=== PATIENT | female | born 1960 | race Caucasian/White ===

== ENCOUNTER 2020-10-13 02:02 | Emergency (ER) | payer OTHER, SELFPAY ==
--- NOTE | ~2020-10-13 | XR_ITS ---
EXAMINATION: XR CHEST CLINICAL INFORMATION: Stomach pain COMPARISON: 07/17/2020 TECHNIQUE: Frontal view of the chest was obtained. FINDINGS: No significant abnormality is noted involving the heart, lungs, mediastinum, bony thorax or soft tissues. XR/XR chest 1V IMPRESSION: Unremarkable examination.
[2020-10-13 02:09] VITALS: BP 162/63; BP 200/100; PULSE 62; PULSE 68; RESP 15; O2SAT 100; BMI 42.5
[2020-10-13 02:14] VITALS: BP 162/63; PULSE 59
--- NOTE | 2020-10-13 02:14 | ECG_ITS ---
Test Reason : DIZZINESS Blood Pressure : / mmHG Vent. Rate : 064 BPM Atrial Rate : 064 BPM P-R Int : 158 ms QRS Dur : 084 ms QT Int : 428 ms P-R-T Axes : 048 035 157 degrees QTc Int : 441 ms Normal sinus rhythm T wave abnormality, consider inferolateral ischemia Abnormal ECG When compared with ECG of 11-DEC-2018 10:03, No significant change was found Referred By: Daxa Alvarez Electronically Signed By:Michael Pollock
[2020-10-13 02:33] LABS: Basophils Percent Auto 0.5 % (0-2); Eosinophils Absolute Auto 0.2 X10*3/uL (0.0-0.4); Eosinophils Percent Auto 1.9 % (0-4); Hematocrit 40.6 % (37-47); Hemoglobin 13.6 g/dl (12.0-16.0); Imm Gran Abs Auto 0.02 X10*3/uL (0.00-0.03); Imm Gran Pct Auto 0.3 % (0.0-0.4); Lymphocytes Absolute Auto 1.7 X10*3/uL (1.2-4.9); Lymphocytes Percent Auto 21.6 % (20-40); MANUAL DIFF FLAG NO; Mean Corpuscular HGB Conc 33.5 g/dl (31.0-35.0); Mean Corpuscular Hemoglobin 28.8 pg (27.0-33.0); Mean Platelet Volume 10.1 fL (9.4-12.3); Monocytes Absolute Auto 0.5 X10*3/uL (0.1-1.2); Monocytes Percent Auto 6.1 % (2-11); Neutrophils Absolute Auto 5.4 X10*3/uL (2.0-8.3); Neutrophils Percent Auto 69.6 % (45-73); Platelet Count 211 X10*3/uL (160-400); Red Blood Count 4.72 X10*6/uL (4.20-5.50); White Blood Count 7.7 X10*3/uL (4.8-10.8)
[2020-10-13 02:56] LABS: Troponin-I High Sensitivity 3.8 ng/L (<3.5-17.0)
[2020-10-13 03:01] VITALS: BP 168/68; BP 170/74; PULSE 61; PULSE 62
[2020-10-13 03:01] LABS: Alanine Aminotransferase 38 U/L (0-31); Albumin Level 4.3 g/dL (3.5-5.0); Alkaline Phosphatase 65 U/L (39-117); Anion Gap 12 (12-20); Aspartate Amino Transferase 24 U/L (5-31); Bilirubin Total 0.4 mg/dL (0.0-1.0); Blood Urea Nitrogen 24 mg/dL (9-16); Calcium 9.6 mg/dL (8.4-10.2); Carbon Dioxide 30 mmol/L (22-29); Chloride 103 mmol/L (96-108); Estimated Glomerular Filt Rate > 60; Glucose Random 118 mg/dL (60-115); Lipase 34 U/L (8-78); Potassium 3.7 mmol/L (3.3-5.1); Sodium 141 mmol/L (135-145); Total Protein 6.9 g/dL (6.5-8.0)
--- NOTE | 2020-10-13 03:03 | ED_ITS ---
HPI - Dizziness General Chief Complaint: Dizziness Stated Complaint: STOMACH PAIN W/DIZZINESS Time Seen by Provider: 10/13/20 02:13 Source: patient Mode of arrival: ambulatory History of Present Illness HPI Narrative: This is 60-year-old female who presents with onset lightheadedness and vertigo that she states started after getting up when she fell asleep watching television at approximately 12:45 am. She denies any headache, shortness of breath, chest pain/palpitations but states that she did feel nauseous and felt as though her ?stomach was upset?. She denies any speech/visual/motor/sensory dysfunction. Related Data Previous Rx's Medication Instructions Recorded montelukast 10 mg tablet 10 mg PO DAILY #90 tab 12/27/19 cholecalciferol (vitamin D3) 1,250 1,250 mcg PO QWEEK #12 cap 01/06/20 mcg (50,000 unit) capsule amlodipine 5 mg tablet 5 mg PO DAILY #90 tab 01/12/20 losartan 50 mg-hydrochlorothiazide 1 tab PO DAILY #90 tab 05/19/20 12.5 mg tablet famotidine 40 mg tablet 40 mg PO BEDTIME #90 tab 05/28/20 Allergies Allergy/AdvReac Type Severity Reaction Status Date / Time Sulfa (Sulfonamide Allergy Intermediate WELTS , Verified 10/13/20 05:15 Antibiotics) RASH, RASH [SULFA (SULFONAMIDE ANTIBIOTICS)] egg [EGG] Allergy Mild RASH Verified 10/13/20 05:15 escitalopram Allergy Unknown GI upset, Verified 10/13/20 05:15 burning lisinopril Allergy Unknown cough Verified 10/13/20 05:15 sertraline Allergy Unknown stomach Verified 10/13/20 05:15 upset SHELLFISH Allergy Severe ANAPHYLAXIS Uncoded 10/13/20 05:15 shellfish Allergy Unknown SOB Uncoded 10/13/20 05:15 Review of Systems Review of Systems: Pertinent positives and negatives as stated in HPI 10 point review of systems is otherwise negative. PMFSH Past Medical History Source: nursing notes reviewed Medical History Chronic back pain Depression Hypertension Social History Social History Alcohol intake: never Patient Tobacco Use Status: Never used Tobacco Use of substances other than those prescribed or required for medical reasons: No Advance Directives: No Patient : No Physical Exam Vital Signs: Vital Signs: Last Vital Signs Pulse 62 10/13/20 04:29 Resp 17 10/13/20 04:29 BP 126/54 L 10/13/20 04:29 Pulse Ox 100 10/13/20 02:09 Body Mass Index 42.5 VITAL SIGNS: Reviewed. GENERAL: Well developed, well nourished, in no acute distress. HEAD: Normocephalic/atraumatic EYES: PERRLA, EOMI intact without pain, no nystagmus EARS: Ext canals without abnormality, TMs non-bulging and non-erythematous NOSE: Nares patent bilateral OROPHARYNX: no oral lesions noted, posterior pharynx clear, dry mucosa NECK: Supple, no adenopathy LUNGS: Normal breath sounds. No adventitious sounds or accessory muscle use. SpO2<100> CARDIOVASCULAR: Regular rate and rhythm without noted murmurs ABDOMEN: Soft, non-tender, non-distended with bowel sounds. SKIN: Inspection of the skin reveals no rashes NEUROLOGIC: Alert and oriented x 4. Strength and sensation to light touch were grossly intact x 4, no facial asymmetry, no pronator drift, cranial nerves 2-12 are grossly intact, cerebellar testing without deficit Course Course Course Narrative: 60-year-old female with history and clinical presentation with low clinical suspicion for neurologic dysfunction and orthostatics are within normal limits although patient appears clinically dry. Will evaluate for evidence infection, anemia, arrhythmia. Of all investigations there are no acute findings to suggest infection, anemia, or arrhythmia. Serial troponins although detectable but not elevated there were no acute changes on review of EKG. Patient was informed of all investigations and on re-evaluation after receiving IV fluid resuscitation she is stable and without symptoms to go home and follow-up with her primary care provider. MDM - Dizziness Lab Data Result diagrams: 10/13/20 02:26 10/13/20 02:26 Labs: Lab Results 10/13/20 10/13/20 10/13/20 Range/Units 02:26 02:26 02:26 WBC 7.7 (4.8-10.8) X10*3/uL RBC 4.72 (4.20-5.50) X10*6/uL Hgb 13.6 (12.0-16.0) g/dl Hct 40.6 (37-47) % MCV 86.0 (80-98) fL MCH 28.8 (27.0-33.0) pg MCHC 33.5 (31.0-35.0) g/dl RDW 13.0 (11.0-16.0) % Plt Count 211 (160-400) X10*3/uL MPV 10.1 (9.4-12.3) fL Immature Gran % (Auto) 0.3 (0.0-0.4) % Neut % (Auto) 69.6 (45-73) % Lymph % (Auto) 21.6 (20-40) % [place] % (Auto) 6.1 (2-11) % Eos % (Auto) 1.9 (0-4) % Baso % (Auto) 0.5 (0-2) % Lymph # (Auto) 1.7 (1.2-4.9) X10*3/uL [place] # (Auto) 0.5 (0.1-1.2) X10*3/uL Eos # (Auto) 0.2 (0.0-0.4) X10*3/uL Baso # (Auto) 0.0 (0.0-0.2) X10*3/uL Abs Immat Gran (auto) 0.02 (0.00-0.03) X10*3/uL Absolute Neuts (auto) 5.4 (2.0-8.3) X10*3/uL Absolute Nucleated RBC 0.000 (0.0-0.012) X10*3/uL Nucleated RBC % (auto) 0.0 (0.0-0.2) /100WBC Sodium 141 (135-145) mmol/L Potassium 3.7 (3.3-5.1) mmol/L Chloride 103 (96-108) mmol/L Carbon Dioxide 30 H (22-29) mmol/L Anion Gap 12 (12-20) BUN 24 H (9-16) mg/dL Creatinine 0.83 (0.5-1.4) mg/dL Estim Creat Clear Calc 78.0 Estimated GFR > 60 Random Glucose 118 H (60-115) mg/dL Calcium 9.6 (8.4-10.2) mg/dL Total Bilirubin 0.4 (0.0-1.0) mg/dL AST 24 (5-31) U/L ALT 38 H (0-31) U/L Alkaline Phosphatase 65 (39-117) U/L Troponin I High Sens 3.8 (<3.5-17.0) ng/L Total Protein 6.9 (6.5-8.0) g/dL Albumin 4.3 (3.5-5.0) g/dL Lipase 34 (8-78) U/L Urine Color Urine Appearance Urine pH (5.0-8.0) Ur Specific [place] (1.005-1.025) Urine Protein (NEG-TRACE) MG/DL Urine Glucose (UA) (NEG) MG/DL Urine Ketones (NEG) MG/DL Urine Blood (NEG) Urine Nitrite (NEG) Ur Leukocyte Esterase (NEG) COVID-19 (ANIKET) (Negative) COVID-19 Clin Com 10/13/20 10/13/20 10/13/20 Range/Units 04:00 04:31 04:31 WBC (4.8-10.8) X10*3/uL RBC (4.20-5.50) X10*6/uL Hgb (12.0-16.0) g/dl Hct (37-47) % MCV (80-98) fL MCH (27.0-33.0) pg MCHC (31.0-35.0) g/dl RDW (11.0-16.0) % Plt Count (160-400) X10*3/uL MPV (9.4-12.3) fL Immature Gran % (Auto) (0.0-0.4) % Neut % (Auto) (45-73) % Lymph % (Auto) (20-40) % [place] % (Auto) (2-11) % Eos % (Auto) (0-4) % Baso % (Auto) (0-2) % Lymph # (Auto) (1.2-4.9) X10*3/uL [place] # (Auto) (0.1-1.2) X10*3/uL Eos # (Auto) (0.0-0.4) X10*3/uL Baso # (Auto) (0.0-0.2) X10*3/uL Abs Immat Gran (auto) (0.00-0.03) X10*3/uL Absolute Neuts (auto) (2.0-8.3) X10*3/uL Absolute Nucleated RBC (0.0-0.012) X10*3/uL Nucleated RBC % (auto) (0.0-0.2) /100WBC Sodium (135-145) mmol/L Potassium (3.3-5.1) mmol/L Chloride (96-108) mmol/L Carbon Dioxide (22-29) mmol/L Anion Gap (12-20) BUN (9-16) mg/dL Creatinine (0.5-1.4) mg/dL Estim Creat Clear Calc Estimated GFR Random Glucose (60-115) mg/dL Calcium (8.4-10.2) mg/dL Total Bilirubin (0.0-1.0) mg/dL AST (5-31) U/L ALT (0-31) U/L Alkaline Phosphatase (39-117) U/L Troponin I High Sens 4.0 (<3.5-17.0) ng/L Total Protein (6.5-8.0) g/dL Albumin (3.5-5.0) g/dL Lipase (8-78) U/L Urine Color YELLOW Urine Appearance CLEAR Urine pH 6.0 (5.0-8.0) Ur Specific [place] 1.010 (1.005-1.025) Urine Protein NEG (NEG-TRACE) MG/DL Urine Glucose (UA) NEG (NEG) MG/DL Urine Ketones NEG (NEG) MG/DL Urine Blood NEG (NEG) Urine Nitrite NEG (NEG) Ur Leukocyte Esterase NEG (NEG) COVID-19 (ANIKET) Negative (Negative) COVID-19 Clin Com See Note ECG Data Attestation: I personally reviewed and interpreted this ECG as follows: Prior ECG tracings: available for review (12/11/2018 no acute changes on comparison) Interpretation: Normal sinus rhythm, HR-64, no STEMI, VA/QRS/QTC are within normal limits. Discharge Plan Discharge Clinical Impression: Dizziness, Dehydration Patient Disposition: Home, Self-Care Instructions: Dehydration (ED), Dizziness (ED) Additional Instructions: 1. Resume all home medications as prescribed. 2. Follow-up with your primary care provider in 1-2 days for re-evaluation and further outpatient management. Return to the ER for acute worsening of your symptoms. Prescriptions: No Action montelukast 10 mg tablet 10 mg PO DAILY Qty: 90 RF: 3 cholecalciferol (vitamin D3) 1,250 mcg (50,000 unit) capsule 1,250 mcg PO QWEEK Qty: 12 RF: 0 amlodipine 5 mg tablet 5 mg PO DAILY Qty: 90 RF: 4 losartan-hydrochlorothiazide 50-12.5 mg tablet 1 tab PO DAILY Qty: 90 RF: 1 famotidine 40 mg tablet 40 mg PO BEDTIME Qty: 90 RF: 3 Referrals: Kianna Munguia MD [Primary Care Provider] - 2 days
[2020-10-13] MEDS: 0.9 % Sodium Chloride 1,000 ML 999 ML IV (04:04)
[2020-10-13 04:09] LABS: Glucose Urine UA NEG (NEG); Leukocyte Esterase Urine NEG (NEG); Nitrite Urine NEG (NEG); Urine Blood NEG (NEG); Urine Ketones NEG (NEG); Urine Protein NEG (NEG-TRACE)
[2020-10-13 04:10] LABS: Appearance Urine CLEAR; Color Urine YELLOW; UACC Culture Trigger NO
[2020-10-13 04:29] VITALS: BP 126/54; PULSE 62; RESP 17
[2020-10-13 04:54] LABS: COVID-19 Test Negative (Negative); IDNOW Serial# 9DD0AD1C
== END 2020-10-13 06:15 | disposition home or self-care (01) ==
PROVIDERS: Emergency Provider Student in an Organized Health Care Education/Training Program; PCP Internal Medicine
DX: R42 Dizziness and giddiness (principal); E86.0 Dehydration; Z79.899 Other long term (current) drug therapy; Z20.822 Contact with and (suspected) exposure to COVID-19
CPT/HCPCS: 36415; 71045; 80053; 81003; 83690; 84484; 85025; 87635; 93005; 99284; 99285

== ENCOUNTER 2021-02-27 08:10 | Outpatient (REF) | payer OTHER, SELFPAY ==
[2021-02-27 11:27] LABS: Alanine Aminotransferase 30 U/L (0-31); Anion Gap 12 (12-20); Aspartate Amino Transferase 24 U/L (5-31); Blood Urea Nitrogen 20 mg/dL (9-16); Calcium 10.2 mg/dL (8.4-10.2); Carbon Dioxide 30 mmol/L (22-29); Chloride 104 mmol/L (96-108); Cholesterol 203 mg/dL; Estimated Glomerular Filt Rate > 60; Glucose Fasting 91 mg/dL (60-99); HDL Cholesterol 36 mg/dL; LDL Cholesterol Calculated 146 mg/dl; Potassium 4.2 mmol/L (3.3-5.1); Sodium 142 mmol/L (135-145); Triglycerides 105 mg/dL
[2021-02-27 11:44] LABS: Vitamin D 25-OH Total 35.2 ng/mL (>30)
== END 2021-02-27 08:11 | disposition home or self-care (01) ==
LOC: HO.HMGCLDS 08:10
PROVIDERS: Visit Provider Internal Medicine
DX: I10 Essential (primary) hypertension (principal)
CPT/HCPCS: 36415; 80048; 80061; 82306; 84450; 84460

== ENCOUNTER 2021-04-19 17:30 | Outpatient (RCR) | payer OTHER, SELFPAY ==
[2021-04-16 13:02] VITALS: BP 130/78
--- NOTE | 2021-04-16 14:00 | MHC.PT.EP ---
[facility] [place] Office [place] Office [place] Office [address] [place] [address] Dr Meena Mueller [address] [phone] F: [phone] F: [phone] F: [phone] F: [phone] Physical Therapy Plan of Care Date of Evaluation: Date of Surgery: Diagnosis: dizziness and giddiness Assessment: 61 y/o F referred to PT with dizziness and giddiness. Describes dizziness as room-spinning that lasts seconds and occurs with rolling in bed (especially to the R), looking up, or turning quickly. She has had these sx for several years of insidious onset. Examination shows normal saccades, normal smooth pursuits, (-) VBI test B, mild sway with static stance in eyes closed positions and on foam, DGI not tested secondary to time constraints, and (+) R and L posterior canal BPPV. Performed Beny x2 for R and L posterior canal with no nystagmus on second roll, but treated as a precaution. Recommend PT 2x/week for 4 weeks to address impairments, implement HEP, and optimize functional mobility. Will re-assess balance once BPPV has resolved. Frequency and Duration: The patient will be seen 2x/week for 4 weeks Short Term Goals: Assess DGI and re-asess static balance Residential Goals: 4 weeks: -Pt will be (-) for nystagmus of reports of vertigo in all diagnostic directions B to resolutions of BPPV in 4 weeks -Tolerate position changes without complaints vertigo to improve safety and return to pre-onset level -Pt to be able to functionally move in all planes without provocation of dizziness and return to PLOF in 4 weeks -Pt to be educated on sx and indications to return to therapy when needed in 4 weeks Treatment Plan: Modalities to reduce pain, spasms and effusion. Manual therapy to restore motion and function. Therapeutic exercise to improve strength and flexibility. Neuromuscular re-education for posture and balance. Therapeutic activities to return to functional activities of daily living. Electronically signed by: Rachel Roman PT Please sign and return to therapist. Thank you for your referral.
--- NOTE | 2021-05-19 10:09 | MHC.PT.DC ---
[facility] [place] Office [place] Office [place] Office [address] Meena Mueller [address] [phone] F: [phone] F: [phone] F: [phone] F: [phone] Physical Therapy Discharge Report Diagnosis: dizziness and giddiness Date of Surgery: Date of Evaluation: 04/16/21 Date of Discharge: 05/19/21 Treatments to Date: 2 Cancellations to Date: 0 No Shows to Date: 0 Discharge Status: Achieved Goals Improved Function Independent with HEP Discharge Summary: Kailyn came in feeling good at the last tx session. She had symptoms following the eval but this cleared up the following 3 days. She has not had any symptoms since the eval. She is able to roll in bed without dizziness and able to look up without symptoms. She was negative for nystagmus and symptoms in all testing positions. She had a questionable beat in roll test but no symptoms and I question if this was regular eye tracking/focusing. She was educated to call and cancel her Monday appointment if symptoms continue to stay resolved. Educated her that chart will be kept open for 30 days if symptoms do not return. DC'd at this time 61 y/o F referred to PT with dizziness and giddiness. Describes dizziness as room-spinning that lasts seconds and occurs with rolling in bed (especially to the R), looking up, or turning quickly. She has had these sx for several years of insidious onset. Examination shows normal saccades, normal smooth pursuits, (-) VBI test B, mild sway with static stance in eyes closed positions and on foam, DGI not tested secondary to time constraints, and (+) R and L posterior canal BPPV. Performed Beny x2 for R and L posterior canal with no nystagmus on second roll, but treated as a precaution. Recommend PT 2x/week for 4 weeks to address impairments, implement HEP, and optimize functional mobility. Will re-assess balance once BPPV has resolved. Electronically signed by: Jocelyn Malin, PT Please sign and return to therapist. Thank you for your referral.
== END 2021-05-19 10:09 | disposition home or self-care (01) ==
LOC: HO.PTCHIC 17:30
PROVIDERS: PCP Internal Medicine; Visit Provider Internal Medicine
DX: R42 Dizziness and giddiness (principal)
CPT/HCPCS: 95992; 97161

== ENCOUNTER 2021-06-18 06:23 | Emergency (ER) | payer OTHER, SELFPAY ==
[2021-06-18 06:31] VITALS: BP 160/77; PULSE 75; RESP 18; TEMP 36.2; O2SAT 99; BMI 40.2
--- NOTE | 2021-06-18 06:54 | ED_ITS ---
HPI - General Adult General Chief complaint: Abdominal Pain Stated complaint: kidney pain, right leg pain Time Seen by Provider: 06/18/21 06:44 Source: patient Mode of arrival: ambulatory Limitations: no limitations History of Present Illness HPI narrative: Patient comes to the emergency room complaining of right-sided flank pain and right upper thigh tingling. Patient states that she was seen on Monday, she was told that she had a UTI, but was not placed on antibiotics. Patient denies dysuria or hematuria, no fever or chills, no flank pain At the same visit, patient complain of right-sided lateral leg tingling and burning sensation. Patient was given meloxicam and cyclobenzaprine. Patient denies shooting pain running down her leg, no pain below the affected area, no calf pain, no numbness or tingling. The burning sensation is worse with standing up. The middle and inner aspect of the thigh are not affected, rest of the leg does not hurt, no numbness or tingling. Patient has no loss of streng th. Patient denies urinary/fecal incontinence or retention. Related Data Home Medications Medication Instructions Recorded Confirmed omeprazole magnesium 20 mg 20 mg PO DAILY 02/26/21 06/15/21 tablet,delayed release (Prilosec OTC) Previous Rx's Medication Instructions Recorded montelukast 10 mg tablet 10 mg PO DAILY #90 tab 12/27/19 amlodipine 5 mg tablet 5 mg PO DAILY #90 tab 01/12/20 losartan 50 mg-hydrochlorothiazide 1 tab PO DAILY #90 tab 01/01/21 12.5 mg tablet meclizine 25 mg tablet 25 mg PO DAILY PRN #20 tab 02/26/21 cyclobenzaprine 10 mg tablet 10 mg PO BEDTIME #14 tab 06/15/21 meloxicam 15 mg tablet 15 mg PO DAILY #14 tab 06/15/21 Allergies Allergy/AdvReac Type Severity Reaction Status Date / Time Sulfa (Sulfonamide Allergy Intermediate WELTS , Verified 06/15/21 10:19 Antibiotics) RASH, RASH [SULFA (SULFONAMIDE ANTIBIOTICS)] egg [EGG] Allergy Mild RASH Verified 06/15/21 10:19 escitalopram Allergy Unknown GI upset, Verified 06/15/21 10:19 burning lisinopril Allergy Unknown cough Verified 06/15/21 10:19 sertraline Allergy Unknown stomach Verified 06/15/21 10:19 upset SHELLFISH Allergy Severe ANAPHYLAXIS Uncoded 06/15/21 10:19 shellfish Allergy Unknown SOB Uncoded 06/15/21 10:19 Review of Systems Review of Systems: Constitutional : No Weight loss, No Fever, No Chills, No Night Sweats, No Fatigue, No Malaise ENT/Mouth : No Hearing loss, No Ear Pain, No Nasal Congestion, No Sinus Pain, No Hoarseness, No sore throat, No Rhinorrhea, No Swallowing Difficulty Eyes: No Eye Pain, No Swelling, No Redness, No Foreign Body, No Discharge, No Vision Changes Cardiovascular : No Chest Pain, No SOB, No Dyspnea on Exertion, No Orthopnea, No Edema, No Palpitations Respiratory : No Cough, No Sputum, No Wheezing, No Smoke Exposure, No Dyspnea Gastrointestinal : No Nausea, No Vomiting, No Diarrhea, No Constipation, mild lower abdominal discomfort, No Hematochezia, No Melena Genitourinary : no irregular bleeding, No Dysuria, No Urinary Frequency, No Hematuria, No Urinary Incontinence, No Urgency, No Flank Pain, No Urinary Flow Changes, No Hesitancy Musculoskeletal : Complaining of tingling and burning sensation in the lateral aspect of the right thigh, No Joint Swelling Skin : No Skin Lesions, No rash Neuro : No Weakness, No Numbness, No Paresthesias, No Loss of Consciousness, No Dizziness, No Headache Psych : No Anxiety/Panic, No Depression, No SI/HI/AH/VH, No Social Issues, Heme/Lymph: No Bruising, No Bleeding,No Lymphadenopathy Endocrine : No Polyuria, No Polydipsia, No Temperature Intolerance [facility] Past Medical History Medical History Cervical cancer screening Chronic back pain DDD (degenerative disc disease), lumbosacral Depression Essential hypertension Hypertension Positional lightheadedness Family History Family History Son Mental health disorder Social History Social History Housing: House Alcohol intake: never Patient Tobacco Use Status: Never used Tobacco e-Cigarette/Vaping Use: Never Used Advance Directives: No Advance Directives Information Provided: Yes service: No Current occupational status: retired Physical Exam ED Vital Signs: Vital Signs - 24 hr 06/18/21 06:31 Temperature 97.2 F Pulse Rate 75 Respiratory Rate 18 Blood Pressure 160/77 H Pulse Oximetry 99 BMI result Body Mass Index 40.2 Const Other: Appearance: Alert. Oriented X3. No acute distress. Well appearing, anxious Eyes: Pupils equal, round and reactive to light. ENT: Pharynx normal. Neck: Normal inspection. Neck supple. No lymph nodes noted. No crepitus CVS: Normal heart rate and rhythm. Pulses normal. Normal S1 and S2 Respiratory: No respiratory distress. Breath sounds normal. No Wheezing. No rales Abdomen: Soft and nontender. No rigidity. No distention. Back: No CVA tenderness Skin: Skin warm and dry. Normal skin color. Normal skin turgor. Extremities: No lower extremity edema. No Lacerations. No Rash, normal motor function, normal strength bilaterally, pain in right thigh was aggravated by standing up. No pain in the actual hip joint with flexion and extension or rotation Neuro: Oriented X 3. No motor deficit. No sensory deficit. Moving all extrem ities. No slurred speech. CN 2 through 12 grossly intact Psych: calm, cooperative, anxious Course Course Course Narrative: Patient states she was slow she tested positive for UTI, no antibiotics were started. Urinalysis and labs pending. I discussed with the patient that the sensation of tingling and burning pain in the lateral aspect of her thighs likely meralgia paresthetica, femoral cutaneous nerve being affected. Patient is already on naproxen and cyclobenzaprine. I discussed with the patient that if the sensation persists, she may need electromyography or a nerve conduction study Patient's white blood cell count within normal limits, no fever, no chills, normal vitals. Urinalysis negative for UTI, negative for blood, ureterolithiasis not suspected. Patient's source of pain is likely musculoskeletal. Patient was given 1 dose of IM Decadron. Patient has been taking naproxen, no Toradol given. Patient is driving, therefore no narcotics will be given in the ED, patient agrees with plan. I discussed the labs with the patient. Medical Decision Making Lab Data Result diagrams: 06/18/21 07:49 06/18/21 07:49 Labs: Lab Results 06/18/21 06/18/21 06/18/21 Range/Units 07:49 07:49 08:03 WBC 6.4 (4.8-10.8) X10*3/uL RBC 4.57 (4.20-5.50) X10*6/uL Hgb 13.0 (12.0-16.0) g/dl Hct 39.7 (37.0-47.0) % MCV 86.9 (80.0-98.0) fL MCH 28.4 (27.0-33.0) pg MCHC 32.7 (31.0-35.0) g/dl RDW 13.2 (11.0-16.0) % Plt Count 212 (160-400) X10*3/uL MPV 10.2 (9.4-12.3) fL Immature Gran % (Auto) 0.3 (0.0-0.4) % Neut % (Auto) 59.5 (45-73) % Lymph % (Auto) 28.9 (20-40) % [place] % (Auto) 8.0 (2-11) % Eos % (Auto) 2.7 (0-4) % Baso % (Auto) 0.6 (0-2) % Lymph # (Auto) 1.9 (1.2-4.9) X10*3/uL [place] # (Auto) 0.5 (0.1-1.2) X10*3/uL Eos # (Auto) 0.2 (0.0-0.4) X10*3/uL Baso # (Auto) 0.0 (0.0-0.2) X10*3/uL Abs Immat Gran (auto) 0.02 (0.00-0.03) X10*3/uL Absolute Neuts (auto) 3.8 (2.0-8.3) x10*3/uL Absolute Nucleated RBC 0.000 (0.0-0.012) X10*3/uL Nucleated RBC % (auto) 0.0 (0.0-0.2) /100WBC Sodium 139 (135-145) mmol/L Potassium 4.2 (3.3-5.1) mmol/L Chloride 103 (96-108) mmol/L Carbon Dioxide 29 (22-29) mmol/L Anion Gap 11 L (12-20) BUN 16 (9-16) mg/dL Creatinine 0.72 (0.5-1.4) mg/dL Estim Creat Clear Calc 89.4 Estimated GFR > 60 Random Glucose 109 (60-115) mg/dL Calcium 9.4 D (8.4-10.2) mg/dL Total Bilirubin 0.3 (0.0-1.0) mg/dL Direct Bilirubin < 0.2 (0.0-0.5) mg/dL AST 26 (5-31) U/L ALT 44 H (0-31) U/L Alkaline Phosphatase 58 (39-117) U/L Total Protein 6.7 (6.5-8.0) g/dL Albumin 4.1 (3.5-5.0) g/dL Urine Color YELLOW Urine Appearance HAZY Urine pH 6.0 (5.0-8.0) Ur Specific [place] 1.015 (1.005-1.025) Urine Protein NEG (NEG-TRACE) MG/DL Urine Glucose (UA) NEG (NEG) MG/DL Urine Ketones NEG (NEG) MG/DL Urine Blood NEG (NEG) Urine Nitrite NEG (NEG) Ur Leukocyte Esterase NEG (NEG) Discharge Plan Discharge Clinical Impression: Meralgia paresthetica of right side Patient Disposition: Home, Self-Care Instructions: Meralgia Paresthetica (ED) Additional Instructions: Please follow-up with your primary care physician tomorrow. If you have any worsening or new symptoms, please return to the emergency room or call 911 Prescriptions: No Action montelukast 10 mg tablet 10 mg PO DAILY Qty: 90 3RF amlodipine 5 mg tablet 5 mg PO DAILY Qty: 90 4RF losartan-hydrochlorothiazide 50-12.5 mg tablet 1 tab PO DAILY Qty: 90 1RF omeprazole magnesium [Prilosec OTC] 20 mg tablet,delayed release (DR/EC) 20 mg PO DAILY 0RF meclizine 25 mg tablet 25 mg PO DAILY PRN (Reason: motion sickness) Qty: 20 0RF meloxicam 15 mg tablet 15 mg PO DAILY Qty: 14 0RF cyclobenzaprine 10 mg tablet 10 mg PO BEDTIME Qty: 14 0RF
[2021-06-18 07:54] LABS: MANUAL DIFF FLAG NO
[2021-06-18 07:58] LABS: Basophils Percent Auto 0.6 % (0-2); Eosinophils Absolute Auto 0.2 X10*3/uL (0.0-0.4); Eosinophils Percent Auto 2.7 % (0-4); Hematocrit 39.7 % (37.0-47.0); Imm Gran Abs Auto 0.02 X10*3/uL (0.00-0.03); Imm Gran Pct Auto 0.3 % (0.0-0.4); Lymphocytes Absolute Auto 1.9 X10*3/uL (1.2-4.9); Lymphocytes Percent Auto 28.9 % (20-40); Mean Corpuscular HGB Conc 32.7 g/dl (31.0-35.0); Mean Corpuscular Hemoglobin 28.4 pg (27.0-33.0); Mean Corpuscular Volume 86.9 fL (80.0-98.0); Mean Platelet Volume 10.2 fL (9.4-12.3); Monocytes Absolute Auto 0.5 X10*3/uL (0.1-1.2); Neutrophils Absolute Auto 3.8 x10*3/uL (2.0-8.3); Neutrophils Percent Auto 59.5 % (45-73); Platelet Count 212 X10*3/uL (160-400); Red Blood Count 4.57 X10*6/uL (4.20-5.50); Red Cell Distribution Width 13.2 % (11.0-16.0); White Blood Count 6.4 X10*3/uL (4.8-10.8)
[2021-06-18] MEDS: traMADoL HCL 50 MG TABLET PO (07:59)
[2021-06-18 08:07] LABS: Appearance Urine HAZY; Color Urine YELLOW; Glucose Urine UA NEG (NEG); Leukocyte Esterase Urine NEG (NEG); Nitrite Urine NEG (NEG); Specific Gravity - Urine 1.015 (1.005-1.025); Urine Blood NEG (NEG); Urine Ketones NEG (NEG); Urine Protein NEG (NEG-TRACE)
[2021-06-18 08:15] LABS: Alanine Aminotransferase 44 U/L (0-31); Albumin Level 4.1 g/dL (3.5-5.0); Alkaline Phosphatase 58 U/L (39-117); Anion Gap 11 (12-20); Aspartate Amino Transferase 26 U/L (5-31); Bilirubin Direct < 0.2 mg/dL (0.0-0.5); Bilirubin Total 0.3 mg/dL (0.0-1.0); Blood Urea Nitrogen 16 mg/dL (9-16); Calcium 9.4 mg/dL (8.4-10.2); Carbon Dioxide 29 mmol/L (22-29); Chloride 103 mmol/L (96-108); Creatinine Clr Calc Pharmacy 89.4; Estimated Glomerular Filt Rate > 60; Glucose Random 109 mg/dL (60-115); Potassium 4.2 mmol/L (3.3-5.1); Sodium 139 mmol/L (135-145); Total Protein 6.7 g/dL (6.5-8.0)
[2021-06-18] MEDS: dexAMETHasone sod phosphate 4 MG/ML VIAL 6 MG IM (08:43)
== END 2021-06-18 08:49 | disposition home or self-care (01) ==
PROVIDERS: Emergency Provider Emergency Medicine; PCP Internal Medicine
DX: G57.11 Meralgia paresthetica, right lower limb (principal); R10.9 Unspecified abdominal pain; M79.651 Pain in right thigh; Z79.899 Other long term (current) drug therapy
CPT/HCPCS: 36415; 80048; 80076; 81003; 85025; 96372; 99283; 99284; J1100

== ENCOUNTER 2022-03-04 08:24 | Outpatient (REF) | payer OTHER, SELFPAY ==
[2022-03-09 19:18] LABS: HPV mRNA E6/E7 rflx Not Detected (Not Detected)
== END 2022-03-04 08:25 | disposition home or self-care (01) ==
LOC: HO.LAB 08:24
PROVIDERS: Visit Provider Internal Medicine
DX: Z12.4 Encounter for screening for malignant neoplasm of cervix (principal); Z11.51 Encounter for screening for human papillomavirus (HPV)
CPT/HCPCS: 87624; 88142

== ENCOUNTER 2022-03-11 08:42 | Outpatient (REF) | payer OTHER, SELFPAY ==
[2022-03-11 11:53] LABS: Alanine Aminotransferase 27 U/L (0-31); Anion Gap 12 (12-20); Aspartate Amino Transferase 23 U/L (5-31); Blood Urea Nitrogen 20 mg/dL (9-16); Calcium 9.8 mg/dL (8.4-10.2); Carbon Dioxide 31 mmol/L (22-29); Chloride 105 mmol/L (96-108); Cholesterol 216 mg/dL; Estimated Glomerular Filt Rate > 60; Glucose Fasting 99 mg/dL (60-99); HDL Cholesterol 36 mg/dL; LDL Cholesterol Calculated 153 mg/dl; Potassium 4.5 mmol/L (3.3-5.1); Sodium 143 mmol/L (135-145); Triglycerides 139 mg/dL
[2022-03-11 14:02] LABS: Vitamin D 25-OH Total 40.8 ng/mL (>30)
== END 2022-03-11 08:43 | disposition home or self-care (01) ==
LOC: HO.HMGCLDS 08:42
PROVIDERS: PCP Internal Medicine; Visit Provider Internal Medicine
DX: Z00.01 Encounter for general adult medical examination with abnormal findings (principal); N95.9 Unspecified menopausal and perimenopausal disorder; I10 Essential (primary) hypertension
CPT/HCPCS: 36415; 80048; 80061; 82306; 84450; 84460

== ENCOUNTER 2022-03-18 06:18 | Day surgery (SDC) | payer OTHER, SELFPAY ==
--- NOTE | 2022-03-17 12:55 | HO.ANESPROP2 ---
Documented by User: Sangita Posadas NP 03/17/22 12:56 HPI - Anesthesia Eval Consult details Narrative: 62yo F for Upper Endoscopy with Balloon Dilitation and colonoscopy PMFSH Active Problems Active Problems: All Active Problems (Updated 03/17/22 @ 12:34 by Tanisha Tovar RN) Cervical cancer screening (Acute) Low back pain (Acute) Mixed anxiety depressive disorder (Acute) Pruritic intertrigo (Acute) Positional lightheadedness (Acute) Essential hypertension (Acute) Chronic back pain (Acute) DDD (degenerative disc disease), lumbosacral (Acute) Past Medical History Medical History Asthma Chronic back pain DDD (degenerative disc disease), lumbosacral Essential hypertension Fibromyalgia Gastritis GERD (gastroesophageal reflux disease) Hypertension Mixed anxiety depressive disorder Positional lightheadedness Pruritic intertrigo Sleep apnea Family History Family History Son Mental health disorder Surgical History Surgical History H/O sinus surgery Hx of section Hx of cholecystectomy Hx of colonoscopy Social History Social History Housing: House Alcohol intake: never Patient Tobacco Use Status: Never used Tobacco e-Cigarette/Vaping Use: Never Used Use of substances other than those prescribed or required for medical reasons: No Are you DNR?: No Advance Directives: No Advance Directives Information Provided: Yes How much weight loss: 14-23 pounds service: No Current occupational status: retired Cognitive needs: No Hearing needs: No Vision needs: Yes Meds Allergies Allergy/AdvReac Type Severity Reaction Status Date / Time Sulfa (Sulfonamide Allergy Intermediate WELTS , Verified 03/04/22 08:18 Antibiotics) RASH, RASH [SULFA (SULFONAMIDE ANTIBIOTICS)] egg [EGG] Allergy Mild RASH Verified 03/04/22 08:18 escitalopram Allergy Unknown GI upset, Verified 03/04/22 08:18 burning lisinopril Allergy Unknown cough Verified 03/04/22 08:18 sertraline Allergy Unknown stomach Verified 03/04/22 08:18 upset SHELLFISH Allergy Severe ANAPHYLAXIS Uncoded 03/04/22 08:18 shellfish Allergy Unknown SOB Uncoded 03/04/22 08:18 Home Medications Medication Instructions Recorded Confirmed Last Taken Type omeprazole magnesium 20 mg 20 mg PO DAILY 02/26/21 03/18/22 Unknown History tablet,delayed release (Prilosec OTC) Exam Exam Date and Time: March 17, 2022 1255 Pertinent Lab Results Pertinent Lab Results: Laboratory Tests 06/18/21 03/11/22 07:49 08:50 WBC 6.4 Hgb 13.0 Hct 39.7 Plt Count 212 Sodium 143 Potassium 4.5 Chloride 105 Carbon Dioxide 31 H BUN 20 H Creatinine 0.93 Assessment and Plan Assessment Anesthesia Assessment: Chart Reviewed Documented by User: Carol Daniel MD 03/18/22 07:23 PMFSH Past Medical History Medical History Asthma Chronic back pain DDD (degenerative disc disease), lumbosacral Essential hypertension Fibromyalgia Gastritis GERD (gastroesophageal reflux disease) Hypertension Mixed anxiety depressive disorder Positional lightheadedness Pruritic intertrigo Sleep apnea Family History Family History Son Mental health disorder Surgical History Surgical History H/O sinus surgery Hx of section Hx of cholecystectomy Hx of colonoscopy Social History Social History Housing: House Alcohol intake: never Patient Tobacco Use Status: Never used Tobacco e-Cigarette/Vaping Use: Never Used Use of substances other than those prescribed or required for medical reasons: No Are you DNR?: No Advance Directives: No Advance Directives Information Provided: Yes How much weight loss: 14-23 pounds service: No Current occupational status: retired Cognitive needs: No Hearing needs: No Vision needs: Yes Meds Allergies Allergy/AdvReac Type Severity Reaction Status Date / Time Sulfa (Sulfonamide Allergy Intermediate WELTS , Verified 03/04/22 08:18 Antibiotics) RASH, RASH [SULFA (SULFONAMIDE ANTIBIOTICS)] egg [EGG] Allergy Mild RASH Verified 03/04/22 08:18 escitalopram Allergy Unknown GI upset, Verified 03/04/22 08:18 burning lisinopril Allergy Unknown cough Verified 03/04/22 08:18 sertraline Allergy Unknown stomach Verified 03/04/22 08:18 upset SHELLFISH Allergy Severe ANAPHYLAXIS Uncoded 03/04/22 08:18 shellfish Allergy Unknown SOB Uncoded 03/04/22 08:18 Home Medications Medication Instructions Recorded Confirmed Last Taken Type omeprazole magnesium 20 mg 20 mg PO DAILY 02/26/21 03/18/22 Unknown History tablet,delayed release (Prilosec OTC) Exam Height,Weight and Vital Signs: 5 ft 1 inch 91 kg Airway Mallampati Class: III TM Dist: >3cm Neck ROM: Full Loose/Missing/Broken Teeth: Yes, No and Upper Heart: rrr Lungs: cta Assessment and Plan Final Anesthetic Review Final Preanesthetic Review: No Changes in Pt Med Stat, Meds/Allgs Chart Reviewed, Consent Obtained/Reviewed and Anes Risks/Benef Reviewed Patient Risk: Low Procedure Risk: Low Anesthetic Plan Anesthetic Plan: MAC: Disposition: Standard PACU
[2022-03-18 06:27] VITALS: BMI 38.0
[2022-03-18 06:32] VITALS: BP 139/62; PULSE 76; RESP 16; TEMP 36.2; O2SAT 95
[2022-03-18] MEDS: Lactated Ringers 1,000 ML 100 ML IVCONT (06:51)
[2022-03-18 08:42] VITALS: BP 131/71; PULSE 102; RESP 17; TEMP 37.1; O2SAT 99
--- NOTE | 2022-03-18 08:52 | P.BOP_ITS ---
Brief Operative Note Date of Service: 03/18/22 Pre-op diagnosis: GERD, Screening Post-op diagnosis: other (Hiatal hernia, Polyps) Procedure: EGD with biopsies, Colonoscopy to the cecum and TI with bx/removal of AC polyp and cold snare polypectomy of polyp at 20cm Surgeon: Rui Delong Anesthesia: MAC Was an Launch Operator used for this Procedure?: No Estimated blood loss (mL): 2.0 Pathology: other (A. EG Junction at 36cm B. Ascending colon polyp C. Polyp at 20cm) Condition: stable Disposition: PACU
[2022-03-18 08:57] VITALS: BP 123/57; PULSE 80; RESP 18; O2SAT 96
[2022-03-18 09:12] VITALS: BP 127/55; PULSE 72; RESP 18; TEMP 36.9; O2SAT 95
--- NOTE | 2022-03-18 09:55 | OP_ITS ---
SURGEON: Rui Delong MD INDICATIONS: The patient presents for evaluation of gastroesophageal reflux, occasional dysphagia, personal history of tubular adenoma of the colon, colorectal cancer screening. Full consent obtained from her for both procedures, including risks of bleeding and perforation. PREOPERATIVE DIAGNOSIS: POSTOPERATIVE DIAGNOSIS: PROCEDURE PERFORMED: ESTIMATED BLOOD LOSS: COMPLICATIONS: ANESTHESIA: Monitored anesthesia care. ASSISTANTS: SPECIMENS: PREOPERATIVE DIAGNOSES: Gastroesophageal reflux, dysphagia, personal history of tubular adenoma of the colon, colorectal cancer screening. POSTOPERATIVE DIAGNOSES: Gastroesophageal reflux, dysphagia, personal history of tubular adenoma of the colon, colorectal cancer screening, small hiatal hernia, colon polyps, diverticulosis, and internal hemorrhoids. PROCEDURES PERFORMED: Esophagogastroduodenoscopy with biopsies, and colonoscopy to cecum and terminal ileum with biopsy with removal of polyp, and cold snare polypectomy. DESCRIPTION OF PROCEDURE: The patient was placed in the left lateral decubitus position. The Olympus video gastroscope was passed into the posterior oropharynx and upper esophagus under direct vision. The scope was passed slowly into the distal esophagus. The gastroesophageal junction appeared at 36 cm. There was some slight irregularity consistent with reflux, but no evidence of esophagitis nor Villa's esophagus. There was no evidence of any stricture nor ring. The gastroesophageal junction was easily passed with the scope into a small hiatal hernia. The scope was advanced to pylorus and the duodenum was cannulated into the descending portion. The duodenum including the bulb appeared normal without mass or ulceration. The scope was withdrawn back to the stomach. The gastric antrum and body appeared normal with good peristalsis. The scope was retroflexed visualizing the proximal stomach carefully which appeared normal, without any sign of mass or ulceration. The scope was straightened and withdrawn back to the esophagus. Biopsies were obtained at the EG junction at 36 cm. Proximal to this, the esophageal mucosa appeared normal. There was no evidence of any proximal esophageal rings. The scope was withdrawn from the patient. She was turned around for the colonoscopy. The digital rectal exam revealed no abnormalities. The Olympus video pediatric colonoscope was entered into the rectum and advanced easily to the cecum. Once in the cecum, I did identify normal-appearing cecal pouch and ileocecal valve. The terminal ileum was cannulated and appeared normal. Scope was withdrawn back in the colon. The entire cecum and ileocecal valve appeared normal. The scope was slowly withdrawn assessing all mucosal surfaces carefully. Preparation was excellent. In the very proximal ascending colon, there was a flat approximately 3 or 4 mm polyp, which was removed with a cold biopsy forceps completely. At 20 cm, was a flat approximately 5 mm polyp, which was removed by cold snare polypectomy and recovered by suction. There was no significant bleeding nor any residual polyp. I did not visualize any other polyps, colitis, or angiodysplasia. There was a mild amount of sigmoid diverticulosis. In the rectum, scope was retroflexed visualizing internal hemorrhoids, but no other pathology. The rectal mucosa appeared normal. The scope was straightened and withdrawn from the patient. She tolerated the procedure well and was returned to recovery area in stable condition. IMPRESSION: 1. Small hiatal hernia, gastroesophageal reflux. 2. Small colon polyps. 3. Diverticulosis. 4. Internal hemorrhoids. PLAN: The results of biopsies will be checked. I would recommend a repeat colonoscopy in 5 years. She was advised not to use any aspirin and NSAIDs for 1 week. She was advised to continue her daily Prilosec as she does report that is working well for her. She has not had any recent dysphagia and is able to eat comfortably as long as she takes the Prilosec regularly. I suspect she is having some esophageal spasm as well. She will see me on a p.r.n. basis. MD ZAKIA Daigle/EVITA / [phone] MTDD
== END 2022-03-18 10:02 | disposition home or self-care (01) ==
PROVIDERS: PCP Internal Medicine; Visit Provider Internal Medicine
PROC: (CPT 45385; principal; 2022-03-18 07:30)
DX: Z12.11 Encounter for screening for malignant neoplasm of colon (principal); Z86.010 Personal history of colon polyps; D12.2 Benign neoplasm of ascending colon; D12.5 Benign neoplasm of sigmoid colon; K57.30 Diverticulosis of large intestine without perforation or abscess without bleeding; K64.8 Other hemorrhoids; R13.10 Dysphagia, unspecified; K21.9 Gastro-esophageal reflux disease without esophagitis; K44.9 Diaphragmatic hernia without obstruction or gangrene
CPT/HCPCS: 45385; 45380; 43239; 88305

== ENCOUNTER 2023-01-22 12:28 | Emergency (ER) | payer OTHER, SELFPAY ==
--- NOTE | ~2023-01-22 | XR_ITS ---
EXAMINATION: XR CHEST CLINICAL INFORMATION: Chest pain. COMPARISON: 10/13/2020. TECHNIQUE: 2 views of the chest were obtained. FINDINGS: The cardiomediastinal silhouette is within normal limits. Lungs are well expanded. No consolidation, edema, or effusion. No pneumothorax. Degenerative changes in the spine. No compression fracture. Cholecystectomy clips. XR/XR chest 2V IMPRESSION: No acute cardiopulmonary findings.
--- NOTE | 2023-01-22 12:31 | ECG_ITS ---
Test Reason : CHEST TIGHTNESS Blood Pressure : / mmHG Vent. Rate : 067 BPM Atrial Rate : 067 BPM P-R Int : 138 ms QRS Dur : 084 ms QT Int : 402 ms P-R-T Axes : 047 019 128 degrees QTc Int : 424 ms Normal sinus rhythm T-wave inversion in Lateral leads Abnormal ECG When compared with ECG of [id number] ,2:33 No significant changes seen Referred By: Veda Leon Electronically Signed By:RADHA NJ MD
--- NOTE | 2023-01-22 12:39 | ED.GENADULT ---
HPI - General Adult General Chief complaint: Chest Pain Stated complaint: Chest tightness Time Seen by Provider: 01/22/23 12:55 Source: patient Mode of arrival: ambulatory Limitations: no limitations History of Present Illness HPI narrative: This is a 62-year-old female with a history of hypertension who presents the ER with complaints of 1 week of shortness of breath and chest tightness with dry cough. Patient has had to use her albuterol inhaler intermittently. She denies any fevers or chills. Cough is not productive. No leg swelling or leg pain. Patient reports that her grandchildren were sick at home with similar symptoms. No recent travel. She reports she has some discomfort with deep breathing. No exertional symptoms. Related Data Home Medications Medication Instructions Recorded Confirmed omeprazole magnesium 20 mg 20 mg PO DAILY 02/26/21 03/18/22 tablet,delayed release (Prilosec OTC) Previous Rx's Medication Instructions Recorded amlodipine 5 mg tablet 5 mg PO DAILY #90 tabs 01/12/20 meclizine 25 mg tablet 25 mg PO DAILY PRN motion sickness 08/24/21 #20 tabs clotrimazole-betamethasone 1 1 appl topical BID PRN rash 10 03/04/22 %-0.05 % topical cream days #45 grams montelukast 10 mg tablet 10 mg PO DAILY #90 tabs 09/19/22 buspirone 5 mg tablet 5 mg PO TID #90 tabs 10/21/22 losartan 50 mg-hydrochlorothiazide 1 tab PO DAILY #90 tabs 01/15/23 12.5 mg tablet Allergies Allergy/AdvReac Type Severity Reaction Status Date / Time Sulfa (Sulfonamide Allergy Intermediate WELTS , Verified 04/08/22 10:49 Antibiotics) RASH, RASH [SULFA (SULFONAMIDE ANTIBIOTICS)] egg [EGG] Allergy Mild RASH Verified 04/08/22 10:49 escitalopram Allergy Unknown GI upset, Verified 04/08/22 10:49 burning lisinopril Allergy Unknown cough Verified 04/08/22 10:49 sertraline Allergy Unknown stomach Verified 04/08/22 10:49 upset SHELLFISH Allergy Severe ANAPHYLAXIS Uncoded 04/08/22 10:49 shellfish Allergy Unknown SOB Uncoded 04/08/22 10:49 Review of Systems Review of Systems: Yes all other systems are reviewed and are negative Constitutional: Constitutional: Reports no additional constitutional complaints, Denies body ache(s), Denies chills, Denies fever(s), Denies headache(s) and Denies weakness Eyes: Eyes: Reports no additional eye complaints and Denies change in vision ENT: Reports system reviewed and no additional complaints, except as documented, Denies dizziness, Denies headache(s), Denies nasal congestion, Denies nasal discharge and Denies neck pain Cardiovascular: Cardiovascular: Reports no additional cardiovascular complaints, Reports chest pain, Denies leg edema and Reports dyspnea Respiratory: Respiratory: Reports no additional respiratory complaints, Reports cough and Reports dyspnea Gastrointestinal: Gastrointestinal: Reports no additional gastrointestinal complaints, Denies abdominal pain, Denies diarrhea, Denies nausea and Denies vomiting Genitourinary: Genitourinary: Reports no additional female genitourinary complaints and Denies urinary incontinence Musculoskeletal: Musculoskeletal: Reports no additional musculoskeletal complaints, Denies back pain, Denies arthralgias, Denies joint swelling, Denies neck pain, Denies numbness and Denies tingling Integumentary/Breasts: Skin/Breast: Reports system reviewed and no additional complaints, except as docu and Denies rash Neurologic: Denies Abnormal speech present, Denies dizziness, Denies headache(s), Denies numbness, Denies tingling and Denies weakness PMFSH Past Medical History Attestation statement: The following information was validated with the patient. Source: old records reviewed and nursing notes reviewed Medical History Low back pain Asthma Gastritis Sleep apnea GERD (gastroesophageal reflux disease) Fibromyalgia Mixed anxiety depressive disorder Pruritic intertrigo Positional lightheadedness Essential hypertension DDD (degenerative disc disease), lumbosacral Chronic back pain Hypertension Surgical History H/O sinus surgery Hx of cholecystectomy Hx of section Hx of colonoscopy Family History Family History Son Mental health disorder Social History Social History Housing: House Alcohol intake: never Patient Tobacco Use Status: Never used Tobacco Smoked in Last 30 Days: No e-Cigarette/Vaping Use: Never Used Use of substances other than those prescribed or required for medical reasons: No Advance Directives: No Advance Directives Information Provided: No service: No Current occupational status: retired Cognitive needs: No Hearing needs: No Vision needs: Yes Physical Exam ED Vital Signs: Vital Signs - 24 hr 01/22/23 12:40 01/22/23 14:09 Temperature 97.4 F Pulse Rate 67 66 Respiratory Rate 18 14 Blood Pressure 151/63 H 122/65 Pulse Oximetry 98 96 Oxygen Delivery Method Room Air Room Air BMI result Body Mass Index 34.0 Const General: cooperative, healthy appearing, comfortable and no acute distress Orientation/consciousness: patient oriented x3 Limitations: no limitations HENMT Head: Yes normal to inspection Ears: hearing grossly normal bilaterally General nose exam: Normal external nose present Face and sinus: Yes normal facial exam Mouth: Normal oral and palatal mucosa present Throat: Yes posterior oropharynx normal Eyes General: appearance normal, both eyes and all related structures Pupils: Equal, round and reactive pupils present Neck Neck: Yes normal visual inspection Chest Chest palpation & inspection: normal inspection of the chest Resp Effort & Inspection: normal respiratory effort Auscultation: clear to auscultation bilaterally Cardio Rate: regular rate Rhythm: regular rhythm Peripheral pulses: Peripheral pulses 2+ throughout GI Inspection: Yes normal to inspection Palpation (GI): Soft to palpation and nontender Auscultation: normal bowel sounds Back/Spine/Pelvis Thoracic/Lumbar Spine: thoracic and lumbar spine normal to inspection Skin General skin exam: no rashes or lesions noted Neuro General: patient oriented x3, no focal motor deficits and normal sensation to monofilament Cranial nerves: Yes Equal, round and reactive pupils present Cognition (Neuro): normal cognition Speech: No Abnormal speech present Gait exam (Neuro): Normal gait present Motor exam (neuro): 5/5 motor strength present throughout Extrem General: Yes normal to inspection, Yes no pedal edema and Yes no calf tenderness Course Course Course Narrative: RME performed by Veda Leon PA-C. Patient is a 62 year old assigned female at presenting to the emergency department with chest pain for months but over the last week it has been more tightness and worse at times. Labs, imaging, and swabs ordered. Patient placed back in the waiting room pending room availability and results. Reevaluation(s) Reevaluation #1: COVID screen is positive. No hypoxia or tachypnea. Chest x-ray shows no acute finding. Lab work unremarkable. EKG shows no new findings. Patient will be discharged home with recommendations for supportive care. Reviewed worrisome signs and symptoms of when to return to the emergency room. Comfortable plan for discharge home. Medical Decision Making Medical Decision Making [facility] Narrative: This is a 62-year-old female with a history of hypertension who presents the ER with complaints of 1 week of shortness of breath and chest tightness with dry cough.? Patient has had to use her albuterol inhaler intermittently.? She denies any fevers or chills.? Cough is not productive.? No leg swelling or leg pain.? Patient reports that her grandchildren were sick at home with similar symptoms.? No recent travel.? She reports she has some discomfort with deep breathing.? No exertional symptoms. Exam is benign Vitals are stable Will obtain labs, EKG, chest x-ray, viral testing Differential Diagnosis Differential Diagnoses: The differential diagnosis associated with the presentation includes Viral syndrome, pneumonia, ACS (see discussion below), PE (no hypoxia or tachypnea, no clinical findings concerning for DVT, negative D-dimer)-low concern Admission/Observation Consideration of admission/observation: Escalation of care including admission/observation considered Symptoms are atypical for ACS, with negative troponin and unchanged EKG. No hypoxia or tachypnea requiring supplemental oxygen. I do not feel the patient needs admission Lab Data [facility] Lab Attestation statement: I reviewed the patient's lab results. COVID + 01/22/23 12:51 01/22/23 12:51 Labs: Lab Results 01/22/23 01/22/23 Range/Units 12:51 13:47 WBC 6.9 (4.8-10.8) X10*3/uL RBC 5.14 (4.20-5.50) X10*6/uL Hgb 14.6 (12.0-16.0) g/dl Hct 44.0 (37.0-47.0) % MCV 85.6 (80.0-98.0) fL MCH 28.4 (27.0-33.0) pg MCHC 33.2 (31.0-35.0) g/dl RDW 13.0 (11.0-16.0) % Plt Count 251 (160-400) X10*3/uL MPV 10.5 (9.4-12.3) fL Immature Gran % (Auto) 0.3 (0.0-0.4) % Neut % (Auto) 66.9 (45-73) % Lymph % (Auto) 23.9 (20-40) % [place] % (Auto) 6.3 (2-11) % Eos % (Auto) 2.0 (0-4) % Baso % (Auto) 0.6 (0-2) % Lymph # (Auto) 1.7 (1.2-4.9) X10*3/uL [place] # (Auto) 0.4 (0.1-1.2) X10*3/uL Eos # (Auto) 0.1 (0.0-0.4) X10*3/uL Baso # (Auto) 0.0 (0.0-0.2) X10*3/uL Abs Immat Gran (auto) 0.02 (0.00-0.03) X10*3/uL Absolute Neuts (auto) 4.6 (2.0-8.3) x10*3/uL Absolute Nucleated RBC 0.000 (0.0-0.012) X10*3/uL Nucleated RBC % (auto) 0.0 (0.0-0.2) /100WBC PT 12.4 (11.1-13.3) SEC INR 1.0 (0.9-1.1) APTT 32.9 (26.0-36.4) SEC D-Dimer High Sensitivty < 150 NG/ML Sodium 142 (135-145) mmol/L Potassium 4.6 (3.3-5.1) mmol/L Chloride 105 (96-108) mmol/L Carbon Dioxide 30 H (22-29) mmol/L Anion Gap 12 (12-20) BUN 13 (9-16) mg/dL Creatinine 0.81 (0.5-1.4) mg/dL Estim Creat Clear Calc 68.8 Estimated GFR > 60 Random Glucose 91 (60-115) mg/dL Calcium 10.0 (8.4-10.2) mg/dL Magnesium 2.5 (1.6-2.6) mg/dL Total Bilirubin 0.3 (0.0-1.0) mg/dL AST 15 (5-31) U/L ALT 11 (0-31) U/L Alkaline Phosphatase 60 (39-117) U/L Troponin I High Sens 5.3 (<3.5-17.0) ng/L B-Natriuretic Peptide 55 (<100) pg/mL Total Protein 7.6 (6.5-8.0) g/dL Albumin 4.4 (3.5-5.0) g/dL Urine Color Yellow Urine Appearance Clear Urine pH 6.5 (5.0-9.0) Ur Specific [place] 1.015 (1.005-1.025) Urine Protein Negative (Neg-Trace) mg/dL Urine Glucose (UA) Negative (Negative) mg/dL Urine Ketones Negative (Negative) mg/dL Urine Blood Negative (Negative) Urine Nitrite Negative (Negative) Ur Leukocyte Esterase Negative (Negative) Influenza Type A (PCR) NEGATIVE (Negative) Influenza Type B (PCR) NEGATIVE (Negative) RSV RNA Qual (PCR) NEGATIVE (Negative) SARS-CoV-2 RNA (RT-PCR) POSITIVE A (Negative) Independent Interpretation I performed an independent interpretation of an: EKG and Plain X-Ray Interpretation: I independently reviewed the EKG which shows normal sinus rhythm with a rate of 67, normal [place], normal QRS, ST T changes nonspecific seen on previous EKG I independently reviewed the chest x-ray and agree with the radiology report Radiology Impression Discussion of test interpretation with radiology: I have reviewed the radiologist's reading. Radiologist Impression: Launch?Image [place] [id number] XRay Report Signed Patient: Kailyn Hill MR#: [id number] : 1960 Acct:[id number] Age/Sex: 62 / F ADM Date: 01/22/23 Loc: .ED Attending Dr: Ordering Physician: Veda Leon Date of Service: 01/22/23 Procedure(s): XR chest 2V Accession Number(s): [id number] cc: Kianna Munguia MD; Veda Leon~ EXAMINATION: XR CHEST CLINICAL INFORMATION: Chest pain. COMPARISON: 10/13/2020. TECHNIQUE: 2 views of the chest were obtained. FINDINGS: The cardiomediastinal silhouette is within normal limits. Lungs are well expanded. No consolidation, edema, or effusion. No pneumothorax. Degenerative changes in the spine. No compression fracture. Cholecystectomy clips. XR/XR chest 2V IMPRESSION: No acute cardiopulmonary findings. Discharge Plan Discharge Clinical Impression: COVID-19 Patient Disposition: Home, Self-Care Instructions: COVID-19 (Coronavirus Disease 2019) (ED) Additional Instructions: Your COVID screen was positive. Your lab work is unremarkable. Her EKG shows no new changes when compared to your previous EKGs. Her chest x-ray shows no signs of pneumonia. Please continue your albuterol at home as needed. Take Motrin or Tylenol for pain or fever. Return for any worsening symptoms Prescriptions: No Action amlodipine 5 mg tablet 5 mg PO DAILY Qty: 90 4RF meclizine 25 mg tablet 25 mg PO DAILY PRN (Reason: motion sickness) Qty: 20 0RF montelukast 10 mg tablet 10 mg PO DAILY Qty: 90 1RF buspirone 5 mg tablet 5 mg PO TID Qty: 90 1RF losartan-hydrochlorothiazide 50-12.5 mg tablet 1 tab PO DAILY Qty: 90 1RF omeprazole magnesium [Prilosec OTC] 20 mg tablet,delayed release (DR/EC) 20 mg PO DAILY clotrimazole-betamethasone 1-0.05 % cream 1 appl topical BID PRN (Reason: rash) 10 Days Qty: 45 0RF Referrals: Kianna Munguia MD [Primary Care Provider] - 1 week
[2023-01-22 12:40] VITALS: BP 151/63; PULSE 67; RESP 18; TEMP 36.3; O2SAT 98; BMI 34.0
[2023-01-22 12:57] LABS: MANUAL DIFF FLAG NO
[2023-01-22 13:11] LABS: Basophils Percent Auto 0.6 % (0-2); Eosinophils Absolute Auto 0.1 X10*3/uL (0.0-0.4); Hemoglobin 14.6 g/dl (12.0-16.0); Imm Gran Abs Auto 0.02 X10*3/uL (0.00-0.03); Imm Gran Pct Auto 0.3 % (0.0-0.4); Lymphocytes Absolute Auto 1.7 X10*3/uL (1.2-4.9); Lymphocytes Percent Auto 23.9 % (20-40); Mean Corpuscular HGB Conc 33.2 g/dl (31.0-35.0); Mean Corpuscular Hemoglobin 28.4 pg (27.0-33.0); Mean Corpuscular Volume 85.6 fL (80.0-98.0); Mean Platelet Volume 10.5 fL (9.4-12.3); Monocytes Absolute Auto 0.4 X10*3/uL (0.1-1.2); Monocytes Percent Auto 6.3 % (2-11); Neutrophils Absolute Auto 4.6 x10*3/uL (2.0-8.3); Neutrophils Percent Auto 66.9 % (45-73); Platelet Count 251 X10*3/uL (160-400); Red Blood Count 5.14 X10*6/uL (4.20-5.50); White Blood Count 6.9 X10*3/uL (4.8-10.8)
[2023-01-22 13:15] LABS: Alanine Aminotransferase 11 U/L (0-31); Albumin Level 4.4 g/dL (3.5-5.0); Alkaline Phosphatase 60 U/L (39-117); Anion Gap 12 (12-20); Aspartate Amino Transferase 15 U/L (5-31); Bilirubin Total 0.3 mg/dL (0.0-1.0); Blood Urea Nitrogen 13 mg/dL (9-16); Carbon Dioxide 30 mmol/L (22-29); Chloride 105 mmol/L (96-108); Creatinine Clr Calc Pharmacy 68.8; Estimated Glomerular Filt Rate > 60; Glucose Random 91 mg/dL (60-115); Magnesium 2.5 mg/dL (1.6-2.6); Potassium 4.6 mmol/L (3.3-5.1); Sodium 142 mmol/L (135-145); Total Protein 7.6 g/dL (6.5-8.0)
[2023-01-22 13:19] LABS: B Type Natriuretic Peptide 55 pg/mL (<100)
[2023-01-22 13:22] LABS: Troponin-I High Sensitivity 5.3 ng/L (<3.5-17.0)
[2023-01-22 13:27] LABS: Prothrombin Time 12.4 SEC (11.1-13.3)
[2023-01-22 13:29] LABS: Partial Thromboplastin Time 32.9 SEC (26.0-36.4)
[2023-01-22 13:45] LABS: Influenza A PCR NEGATIVE (Negative); Influenza B PCR NEGATIVE (Negative); Resp Syncy Virus RNA Qual PCR NEGATIVE (Negative); SARS COV2 PCR INHOUSE POSITIVE (Negative)
[2023-01-22 13:46] LABS: D Dimer High Sensitivity < 150 NG/ML
[2023-01-22 13:54] LABS: Appearance Urine Clear; Color Urine Yellow; Glucose Urine UA Negative (Negative); Leukocyte Esterase Urine Negative (Negative); Nitrite Urine Negative (Negative); PH 6.5 (5.0-9.0); Specific Gravity - Urine 1.015 (1.005-1.025); Urine Blood Negative (Negative); Urine Ketones Negative (Negative); Urine Protein Negative (Neg-Trace)
[2023-01-22 14:09] VITALS: BP 122/65; PULSE 66; RESP 14; O2SAT 96
== END 2023-01-22 16:48 | disposition home or self-care (01) ==
PROVIDERS: Nurse Practitioner Family; Physician Assistant Medical; Emergency Provider Emergency Medicine Emergency Medical Services; PCP Internal Medicine
DX: U07.1 COVID-19 (principal); R07.89 Other chest pain; I10 Essential (primary) hypertension; R06.02 Shortness of breath; R05.9 Cough, unspecified; Z79.899 Other long term (current) drug therapy
CPT/HCPCS: 0241U; 36415; 71046; 80053; 81003; 83735; 83880; 84484; 85025; 85379; 85610; 85730; 93005; 99284

== ENCOUNTER 2023-03-10 08:07 | Outpatient (AMB) | payer OTHER, SELFPAY ==
[2023-03-10 08:12] VITALS: BP 110/64; PULSE 77; O2SAT 97; BMI 34.0
--- NOTE | 2023-03-10 08:12 | A.OFFPC_ITS ---
Vital Signs 03/10/23 08:12 Height 5 ft 1 in Weight 180 lb BMI 34.0 BP 110/64 Blood Pressure Location Rt brachial Position Sitting Pulse 77 Pulse Source Pulse Oximeter Pulse Oximetry (%) 97 Oxygen Delivery Method Room Air Intake Visit Reasons: pe Intake Note: Pt is here today for her PE Allergies Sulfa (Sulfonamide Antibiotics) [SULFA (SULFONAMIDE ANTIBIOTICS)] Allergy (Intermediate, Verified 03/10/23 08:18) WELTS , RASH, RASH egg [EGG] Allergy (Mild, Verified 03/10/23 08:18) RASH escitalopram Allergy (Unknown, Verified 03/10/23 08:18) GI upset, burning lisinopril Allergy (Unknown, Verified 03/10/23 08:18) cough sertraline Allergy (Unknown, Verified 03/10/23 08:18) stomach upset SHELLFISH Allergy (Severe, Uncoded 03/10/23 08:18) ANAPHYLAXIS shellfish Allergy (Unknown, Uncoded 03/10/23 08:18) SOB Medication List - Last Reconciled 03/10/23 by Kianna Munguia MD amlodipine 5 mg PO DAILY buspirone 5 mg PO TID clotrimazole-betamethasone 1-0.05 % 1 appl topical BID PRN 10 days losartan-hydrochlorothiazide 50-12.5 mg 1 tab PO DAILY montelukast 10 mg PO DAILY omeprazole magnesium (Prilosec OTC) 20 mg PO DAILY Tobacco use date assessed: 03/10/23 Dental Screening Dental Screen Date: 03/10/23 Did you have a dental visit in the last 12 months?: No Was dental information given to patient?: Patient has dentist HPI pe HPI Details 63-year-old lady here today for physical exam. Is up-to-date with her cervical cancer screening, done a year ago with negative findings. Had a screening colonoscopy done by Dr. Delong March 2022 with removal of 2 tubular adenoma, to be repeated again in 2027. However she has not had a mammogram in years, and has not yet had a bone density scan. No history of fractures. She has hypertension currently on amlodipine and losartan-HCTZ. Complains of infrequent lightheadedness especially when she bends down. She has is chronic esophagitis seen on the upper EGD done earlier this year, takes omeprazole which has been helping and only takes montelukast for her allergies. She has sleep apnea but declined using CPAP. Currently takes buspirone 5 mg 1 tablet 2 times a day for her anxiety disorder. Still gets more anxiety attacks at night , which has been interfering with her sleep. She has hyperlipidemia, currently trying to control with diet, but admits to not getting any regular exercise PFSH Medical History (Updated 03/10/23 @ 09:06 by Kianna Munguia MD) Hyperlipidemia Low back pain Gastritis Sleep apnea GERD (gastroesophageal reflux disease) Fibromyalgia Mixed anxiety depressive disorder Pruritic intertrigo Positional lightheadedness Essential hypertension DDD (degenerative disc disease), lumbosacral Surgical History H/O sinus surgery Hx of cholecystectomy Hx of section Hx of colonoscopy Family History Son Mental health disorder Social History Housing: House Alcohol intake: never Patient Tobacco Use Status: Never used Tobacco e-Cigarette/Vaping Use: Never Used service: No Current occupational status: retired Cognitive needs: No Hearing needs: No Vision needs: Yes Questionnaire Thrive Questionnaire Date Thrive assessed: 04/08/22 AUDIT C Alcohol Use Questionnaire (AUDIT-C) 1. How often do you have a drink containing alcohol?: Never Total Score: 0 WILFRIDO-7 AMB Questionnaire WILFRIDO-7 Date WILFRIDO - 7 assessed: 04/08/22 Source: Developed by Drs. Rui Retana, Quita Luke, Kenji Landa and colleagues, with an educational betzaida from [employer]. Review of Systems Const Denies fever(s), Denies headache(s) and Denies weakness Eyes Reports no additional complaints ENT Reports Normal hearing present, Denies headache(s), Denies nasal congestion, Denies nasal discharge and Denies sore throat Card Denies chest pain, Denies palpitations and Denies dyspnea Resp Denies chest congestion, Denies cough, Denies dyspnea and Denies wheezing GI Denies abdominal pain, Denies melena, Denies hematochezia, Denies change in b owel habits and Reports heartburn (Taking omeprazole) Denies urinary frequency, Denies difficulty voiding, Denies dysuria, Denies urinary incontinence and Denies urinary urgency Musc Details: Occasional Joint and back pain, relieved with taking meloxicam, and using by freeze spray, pain stiffness in left knee when going up and down stairs Skin/Breast Denies rash Neuro Reports Normal hearing present, Denies headache(s), Denies Sensory deficit (N euro) and Denies weakness Psych Reports as per HPI Endo Denies polydipsia, Denies polyuria and Denies palpitations Clark/Lymph Reports no additional complaints Aller/Immun Denies wheezing Physical exam (Primary Care) Vital Signs: Last Vital Signs Pulse 77 03/10/23 08:12 BP 110/64 03/10/23 08:12 Pulse Ox 97 03/10/23 08:12 Oxygen Delivery Method Room Air 03/10/23 08:12 BMI result Body Mass Index 34.0 Tobacco/Smoking Status: Tobacco use Status Tobacco use date assessed 04/08/22 04/08/22 10:39 Patient Tobacco Use Status Never used Tobacco 04/08/22 10:36 e-Cigarette/Vaping Use Never Used 04/08/22 10:36 Thrive Assessment: Date of Thrive Assessment Date Thrive assessed 04/08/22 04/08/22 10:42 Advance Care Planning discussion: Completed/Scanned Date of discussion: 03/10/23 Who was present: Patient Forms completed: Health Care Proxy and MOLST Time spent: 16-45 minutes Actual minutes spent: 16 Const General: cooperative, healthy appearing, no acute distress and alert Orientation/consciousness: patient oriented x3 Limitations: no limitations HENMT Head: Yes atraumatic Ears: hearing grossly normal bilaterally, external ears normal, TM's normal bilaterally and EAC's normal General nose exam: Normal external nose present and No nasal discharge present Face and sinus: Yes sinuses nontender and Yes face symmetric Mouth: lip normal, oropharynx normal and moist mucous membranes Eyes Conjunctivae: conjunctivae normal Sclerae: sclerae normal Pupils: Equal, round and reactive pupils present EOM: EOMs intact bilaterally Neck Neck: Yes full ROM and Yes no lymphadenopathy Thyroid: Thyroid normal (Nonpalpable) Carotids: no bruits Chest Chest palpation & inspection: normal inspection of the chest Breast/axilla inspection: normal inspection of the breasts Breast/axilla palpation: normal palpation of the breasts Resp Effort & Inspection: normal respiratory effort and able to speak in complete sentences Auscultation: clear to auscultation bilaterally Cardio Jugular venous distension: no JVD Rate: regular rate Rhythm: regular rhythm Heart sounds: S1 normal heart sound present and S2 normal heart sound present GI Inspection: Yes normal to inspection Palpation (GI): Soft to palpation Auscultation: normal bowel sounds General: Yes no CVA tenderness Back/Spine/Pelvis Back: no CVA tenderness Skin General skin exam: no rashes or lesions noted Neuro General: patient oriented x3, gait normal, moves all extremities, no focal motor deficits and CN's II-XI intact bilaterally Cranial nerves: Yes Equal, round and reactive pupils present and Yes Normal hearing present Cognition (Neuro): normal cognition Gait exam (Neuro): Normal gait present Motor exam (neuro): 5/5 motor strength present throughout Sensory Exam: No Sensory deficit (Neuro) Extrem General: Yes normal to inspection, Yes full ROM, Yes no pedal edema, Yes normal gait, Yes amputation noted and Yes other (Crepitus noted in both knee joint) Psych Appearance: grossly normal and well kempt Mental Status: mental status grossly normal Speech and movement: Normal speech and movement present Affect: normal affect Attitude: cooperative Thought process: Normal thought process present Thought content: Normal thought content present Results Reviewed Results Reviewed: Laboratory Tests 01/22/23 12:51 WBC 6.9 Hgb 14.6 Hct 44.0 Plt Count 251 Name: Kailyn Hill Age/Sex: 62/F : 1960 Unit#: [id number] Attend Dr: Codey Fuentes MD Re01/22/23 Status: [facility]P [facility] Dis[facility]: SPEC : [id number] GERA: 01/22/23 STATUS: COMP REQ : [id number] RECD: 01/22/[address]: Veda Leon COMP: 01/22/23 ENTERED: 01/22/[address]: Kianna Munguia MD ORDERED: CMP, MG Test Result Flag Reference Site Sodium 142 135-145 mmol/L Potassium 4.6 3.3-5.1 mmol/L CL 105 96-108 mmol/L CO2 30 H 22-29 mmol/L Gap 12 12-20 BUN 13 9-16 mg/dL Creat 0.81 0.5-1.4 mg/dL Estimated CrCl 68.8 Provided height and weight: 154.94 cm, 81.6 kg. eGFR (calculated from the MDRD study equation) and eCrCl (calculated from the Cockcroft-Gault equation) are based on different parameters and may not yield comparable results. If eCrCl result is absurd, please check patient's height/weight. EGFR > 60 NOTE: For -B[place] individuals, multiply the result by 1.210. Chronic Kidney Disease: Estimated GFR < 60 mL/min/1.73m2 Severe Kidney Disease: Estimated GFR < 15 mL/min/1.73m2 Glucose, Random 91 60-115 mg/dL CA 10.0 8.4-10.2 mg/dL Magnesium 2.5 1.6-2.6 mg/dL Total Bili 0.3 0.0-1.0 mg/dL AST (GOT) 15 5-31 U/L ALT (GPT) 11 0-31 U/L Protein, Total 7.6 6.5-8.0 g/dL Alb 4.4 3.5-5.0 g/dL Alk Phos 60 39-117 U/L Assessment and Plan Assessment & Plan (1) Postmenopause: Code(s): Z78.0 - Asymptomatic menopausal state Plan: Will check bone density scan to screen for osteoporosis, advised to take adequate calcium from dietary sources and start taking [id number]-[id number] vitamin D3 at 2000 units daily, vitamin-D level or (2) Annual visit for general adult medical examination with abnormal findings: Code(s): Z00.01 - Encounter for general adult medical examination with abnormal findings Plan: Will check fasting lipids and vitamin-D level, normal CBC and fasting glucose electrolytes and renal function on recent labs done. Recommended dental visit every 6 months and regular eye exams, at least every 2 years. Take adequate calcium in diet and vitamin-D 3 at 2000 IU per cap once a day, in addition to weight-bearing exercises to help maintain good muscle tone and weight control. Instructed to do self-breast exam, and advised to get yearly mammogram, ordered today together with bone density scan to screen for osteoporosis. Up-to-date with her screening colonoscopy done in 2022, repeat again in 2027. Up-to-date with her COVID vaccination and flu shot as well as Tdap, reminded to get her shingles vaccine (3) Hyperlipidemia: Code(s): E78.5 - Hyperlipidemia, unspecified Qualifiers: Hyperlipidemia type: pure hypercholesterolemia Qualified Code(s): E78.00 - Pure hypercholesterolemia, unspecified Plan: Fasting lipid panel ordered, reinforced importance of adhering to low- cholesterol diet and getting regular exercise (4) GERD (gastroesophageal reflux disease): Code(s): K21.9 - Gastro-esophageal reflux disease without esophagitis Plan: Recent EGD done earlier this year showed presence of chronic inflammation in esophagus, continue omeprazole, and avoid triggers in food for her heart (5) Fibromyalgia: Code(s): M79.7 - Fibromyalgia Plan: Takes ibuprofen as needed, advised to all cut back on this and try taking Tylenol arthritis instead and using Biofreeze as needed (6) Hypertension: Code(s): I10 - Essential (primary) hypertension Qualifiers: Hypertension type: primary hypertension Qualified Code(s): I10 - Essential (primary) hypertension Plan: Has been getting episodes of positional lightheadedness likely due to low blood pressure, will stop amlodipine, continue with losartan-HCTZ and a low-salt diet, see nurse navigator in 2 weeks to check blood pressure and see me back for follow-up in 6 months (7) Mixed anxiety depressive disorder: Code(s): F41.8 - Other specified anxiety disorders Plan: Continue with buspirone 5 mg in the morning and tried the increasing dose to 7.5 or 10 mg at night (8) DDD (degenerative disc disease), lumbosacral: Code(s): M51.37 - Other intervertebral disc degeneration, lumbosacral region Plan: Advised to try taking Tylenol arthritis 650 mg 1 tablet 3 times a day as needed, avoid using ibuprofen, and may continue using biofreeze as needed (9) Sleep apnea: Code(s): G47.30 - Sleep apnea, unspecified Plan: Patient refusing to use CPAP, continue to try losing weight, lie on her side when sleeping (10) Advanced directives, counseling/discussion: Code(s): Z71.89 - Other specified counseling Plan: Initiated the conversation about Advanced Directives. Advanced Directives help patients prepare for current and future decisions about their medical treatment and place of care. Discussed with patient that it is a process where a patients current condition and prognosis are reviewed, their wishes for information regarding their illness are elicited, and likely medical dilemmas are presented and options discussed. MOLST and healthcare proxy completed today. These form can be amended as needed, reviewed yearly and make changes as needed Orders: Orders MM tomosynthesis screening BI Today Z12.31 - Encounter for screening mammogram for malignant neoplasm of breast, Z13.820 - Encounter for screening for osteoporosis, Z78.0 - Asymptomatic menopausal state XR DEXA axial skeleton Today Z12.11 - Encounter for screening for malignant neoplasm of colon, Z12.31 - Encounter for screening mammogram for malignant neoplasm of breast, Z13.820 - Encounter for screening for osteoporosis, Z78.0 - Asymptomatic menopausal state Lipid Panel Today E78.5 - Hyperlipidemia, unspecified, Z00.01 - Encounter for general adult medical examination with abnormal findings, Z78.0 - Asymptomatic menopausal state Vitamin D 25-OH Total Today E78.5 - Hyperlipidemia, unspecified, Z00.01 - Encounter for general adult medical examination with abnormal findings, Z78.0 - Asymptomatic menopausal state Medications: Discontinued amlodipine Discontinued Reason: Doctor's Order 5 mg PO DAILY 90 tabs 4RF Coding Level of Care Code Est Pt Prev Care 40-64y(27295) Diagnoses Postmenopause Z78.0 Annual visit for general adult medical examination with abnormal findings Z00.01 Pure hypercholesterolemia E78.00 Hyperlipidemia type: pure hypercholesterolemia GERD (gastroesophageal reflux disease) K21.9 Fibromyalgia M79.7 Primary hypertension I10 Hypertension type: primary hypertension Mixed anxiety depressive disorder F41.8 DDD (degenerative disc disease), lumbosacral M51.37 Sleep apnea G47.30 Advanced directives, counseling/discussion Z71.89 Additional Codes Vital Signs *Quality* - Advance Care Planning discussion: Completed/Scanned ([id number]) Vital Signs *Quality* - Time spent: 16-45 minutes ([id number])
== END 2023-03-10 08:58 | disposition home or self-care (01) ==
PROVIDERS: Visit Provider Internal Medicine
DX: Z00.00 Encounter for general adult medical examination without abnormal findings (principal); Z78.0 Asymptomatic menopausal state; E78.00 Pure hypercholesterolemia, unspecified; K21.9 Gastro-esophageal reflux disease without esophagitis; M79.7 Fibromyalgia; I10 Essential (primary) hypertension; F41.8 Other specified anxiety disorders; M51.37 Other intervertebral disc degeneration, lumbosacral region; G47.30 Sleep apnea, unspecified
CPT/HCPCS: 1123F; 99396; 99497

== ENCOUNTER 2023-03-24 10:35 | Outpatient (REF) | payer OTHER, SELFPAY ==
[2023-03-24 14:01] LABS: Cholesterol 234 mg/dL (<200); HDL Cholesterol 38 mg/dL (>40); LDL Cholesterol Calculated 162 mg/dL (<100); Triglycerides 171 mg/dL (<150)
[2023-03-24 14:18] LABS: Vitamin D 25-OH Total 33.3 ng/mL (>30)
== END 2023-03-24 10:36 | disposition home or self-care (01) ==
LOC: HO.HMGCLDS 10:35
PROVIDERS: PCP Internal Medicine; Visit Provider Internal Medicine
DX: Z00.01 Encounter for general adult medical examination with abnormal findings (principal); E78.5 Hyperlipidemia, unspecified; Z78.0 Asymptomatic menopausal state
CPT/HCPCS: 36415; 80061; 82306

== ENCOUNTER 2023-04-13 14:34 | Outpatient (REF) | payer OTHER, SELFPAY ==
--- NOTE | ~2023-04-13 | MM_ITS ---
EXAMINATION: BONE DENSITOMETRY CLINICAL INDICATION: Encounter for screening mammogram for malignant neoplasm of breast. COMPARISON: Previous BD dated 03/22/2019 and baseline BD dated 07/17/2007. TECHNIQUE: Using a [employer] DXA System (software version: 13.1) manufactured by [employer], dual-energy x-ray absorptiometry was performed of the lumbar spine and left hip. The images are of good technical quality. Summary results are attached. FINDINGS: LEFT FEMUR, NECK: Current: BMD 1.180 g/cm2, Z-score 2.1, T-score 1.0, normal. Prior: BMD 1.143 g/cm2. Baseline: BMD 1.127 g/cm2. LEFT FEMUR, TOTAL: Current: BMD 1.254 g/cm2, Z-score 2.7, T-score 2.0, normal, 1.6% decrease from previous, 2.5% increase from baseline (<5% change is not significant). Prior: BMD 1.275 g/cm2. Baseline: BMD 1.224 g/cm2. AP SPINE L1-L4: Current: BMD 1.445 g/cm2, Z-score 3.2, T-score 2.2, normal, 9.6% increase from previous, 15.3% increase from baseline (<5% change is not significant). Prior: BMD 1.319 g/cm2. Baseline: BMD 1.253 g/cm2. IDENTIFIED RISK FACTORS: Early menopause, height loss, low calcium intake, secondary osteoporosis, thiazide. HISTORY OF FRACTURE: None listed. MEDICATIONS: Vitamin D. MM/XR DEXA axial skeleton IMPRESSION: 1. DIAGNOSIS: Normal bone density based on the lowest T-score value of 1.0 in the femoral neck applying World Health Organization criteria. 2. 10-YEAR FRACTURE RISK PREDICTION, FRAX: According to the guidelines, FRAX calculation should only be performed on patients in the osteopenia bone density category. Therefore, FRAX was not performed on this patient. 3. Treatment Recommendations: NOF guidelines recommend consideration for treatment in postmenopausal women and men age 50 and older presenting with the following: -A hip or vertebral (clinical or morphometric) fracture. -T-score less than or equal to -2.5 at the femoral neck or spine after appropriate evaluation to exclude secondary causes. -Low bone mass at the hip or spine and a 10-year fracture probability by FRAX of greater than or equal to 3% for hip fracture or greater than or equal to 20% for major osteoporotic fracture based on the [place] adapted WHO algorithm. 4. Other Recommendations: All treatment decisions require clinical judgment and consideration of individual patient factors, including patient preferences, comorbidities, previous drug use, risk factors not captured in the FRAX model (e.g. frailty, falls, vitamin D deficiency, increased bone turnover, interval significant decline in bone density) and possible under or overestimation of fracture risk by FRAX. FUTURE SCAN RECOMMENDATION: People with diagnosed cases of osteoporosis or at high risk for fracture should have regular bone mineral density tests. For patients eligible for Medicare, routine testing is allowed once every 2 years. The testing frequency can be increased to one year for patients who have rapidly progressing disease, those who are receiving or discontinuing medical therapy to restore bone mass, or have additional risk factors.
--- NOTE | ~2023-04-13 | MM_ITS ---
EXAMINATION: MM SCREENING DIGITAL BREAST TOMOSYNTHESIS, BILATERAL CLINICAL INFORMATION: Screening. Asymptomatic. COMPARISON: Mammography: This study is compared with prior exams dating back to 2017. TECHNIQUE: Digital breast tomosynthesis is performed in both the craniocaudal and mediolateral oblique views along with computer-aided detection (CAD). Synthesized 2D images are generated from the tomosynthesis. FINDINGS: There are scattered areas of fibroglandular density (ACR BI-RADS breast composition Category b). There are no significant masses, abnormal calcifications, or other abnormalities. There are bilateral, benign calcifications scattered throughout each breast. MM/MM tomosynthesis screening BI IMPRESSION: No mammographic evidence of malignancy. ASSESSMENT: BI-RADS BI-RADS 2 - Benign Findings RECOMMENDATION: Routine annual mammography screening. 1 year F/U This examination should not preclude the clinical evaluation of a suspicious palpable abnormality. This patient's information was entered into a reminder system with a target due date for their next mammogram.
== END 2023-04-13 14:35 | disposition home or self-care (01) ==
LOC: HO.MAMMO 14:34
PROVIDERS: PCP Internal Medicine; Visit Provider Internal Medicine
DX: Z12.31 Encounter for screening mammogram for malignant neoplasm of breast (principal); Z13.820 Encounter for screening for osteoporosis; Z78.0 Asymptomatic menopausal state
CPT/HCPCS: 77063; 77067; 77080

== ENCOUNTER → 2023-04-13 15:00 | Outpatient (BNV) | payer OTHER, SELFPAY | PROVIDERS: PCP Internal Medicine; Visit Provider Radiology Diagnostic Radiology | DX: Z12.31 Encounter for screening mammogram for malignant neoplasm of breast (principal) | CPT/HCPCS: 77063; 77067 ==

== ENCOUNTER 2023-09-08 09:00 | Outpatient (REF) | payer OTHER, SELFPAY ==
[2023-09-08 11:57] LABS: Alanine Aminotransferase 17 U/L (0-31); Anion Gap 11 (12-20); Aspartate Amino Transferase 18 U/L (5-31); Blood Urea Nitrogen 14 mg/dL (9-16); Calcium 9.7 mg/dL (8.4-10.2); Carbon Dioxide 30 mmol/L (22-29); Chloride 105 mmol/L (96-108); Cholesterol 223 mg/dL (<200); Estimated Glomerular Filt Rate > 60; Glucose Fasting 87 mg/dL (60-99); HDL Cholesterol 43 mg/dL (>40); LDL Cholesterol Calculated 152 mg/dL (<100); Potassium 3.8 mmol/L (3.3-5.1); Sodium 142 mmol/L (135-145); Triglycerides 141 mg/dL (<150); Vitamin D 25-OH Total 53.3 ng/mL (>30)
== END 2023-09-08 09:01 | disposition home or self-care (01) ==
LOC: HO.HMGCLDS 09:00
PROVIDERS: PCP Internal Medicine; Visit Provider Internal Medicine
DX: E78.00 Pure hypercholesterolemia, unspecified (principal); I10 Essential (primary) hypertension; Z78.0 Asymptomatic menopausal state
CPT/HCPCS: 36415; 80048; 80061; 82306; 84450; 84460

== ENCOUNTER 2023-09-11 10:28 | Outpatient (AMB) | payer OTHER, SELFPAY ==
[2023-09-11 10:36] VITALS: BP 112/66; PULSE 75; O2SAT 97; BMI 35.7
--- NOTE | 2023-09-11 10:36 | MHC.PC.OV ---
Vital Signs 09/11/23 10:36 Height 5 ft 1 in Weight 189 lb BMI 35.7 BP 112/66 Blood Pressure Location Lt brachial Position Sitting Pulse 75 Pulse Source Pulse Oximeter Pulse Oximetry (%) 97 Oxygen Delivery Method Room Air Intake Visit Reasons: 6 month f/u labs Intake Note: Pt is here today for her 6 mo. f/u Allergies Sulfa (Sulfonamide Antibiotics) [SULFA (SULFONAMIDE ANTIBIOTICS)] Allergy (Intermediate, Verified 09/11/23 11:01) WELTS , RASH, RASH egg [EGG] Allergy (Mild, Verified 09/11/23 11:01) RASH escitalopram Allergy (Unknown, Verified 09/11/23 11:01) GI upset, burning lisinopril Allergy (Unknown, Verified 09/11/23 11:01) cough sertraline Allergy (Unknown, Verified 09/11/23 11:01) stomach upset SHELLFISH Allergy (Severe, Uncoded 09/11/23 11:01) ANAPHYLAXIS shellfish Allergy (Unknown, Uncoded 09/11/23 11:01) SOB Medication List - Last Reconciled 09/11/23 by Kianna Munguia MD buspirone 5 mg PO TID clotrimazole-betamethasone 1-0.05 % 1 appl topical BID PRN 10 days losartan-hydrochlorothiazide 50-12.5 mg 1 tab PO DAILY montelukast 10 mg PO DAILY omeprazole magnesium (Prilosec OTC) 20 mg PO DAILY Tobacco use date assessed: 09/11/23 Fall risk assessment: No Falls in past year Last assessed Fall Risk: 09/11/23 Dental Screening Dental Screen Date: 09/11/23 Did you have a dental visit in the last 12 months?: No Was dental information given to patient?: Patient declined HPI 6 month f/u labs HPI Details 63-year-old lady with hypertension, hyperlipidemia, chronic GERD, fibromyalgia, mixed anxiety depression, degenerative disease in lumbosacral spine, and sleep apnea, here today for follow-up. Has been taking her medicines as directed. Blood pressure today is controlled on present medication which consists losartan-HCTZ . Takes omeprazole 20 mg daily for esophagitis seen on upper endoscopy, but still gets breakthrough episodes of heartburn.. She has been taking buspirone 5 mg 1 tablet 3 times a day which is helping control her anxiety and depression. Recent fasting labs done showed normal electrolytes, fasting glucose but LDL cholesterol is elevated at 152 mg per dL. Complains of recurrence of intermittent positional lightheadedness especially when she gets up from a lying to standing position fast. Has had vestibular rehab therapy in the past with Beny maneuver done which has afforded relief, would like a referral back for vestibular rehab therapy [facility] Medical History (Updated 09/17/23 @ 16:19 by Kianna Munguia MD) Benign positional vertigo Hyperlipidemia Low back pain Gastritis Sleep apnea GERD (gastroesophageal reflux disease) Fibromyalgia Mixed anxiety depressive disorder Pruritic intertrigo Positional lightheadedness Essential hypertension DDD (degenerative disc disease), lumbosacral Surgical History H/O sinus surgery Hx of cholecystectomy Hx of section Hx of colonoscopy Family History Son Mental health disorder Social History Housing: House Alcohol intake: never Patient Tobacco Use Status: Never used Tobacco e-Cigarette/Vaping Use: Never Used service: No Current occupational status: retired Cognitive needs: No Hearing needs: No Vision needs: Yes Questionnaire PHQ-9 Over the last 2 weeks, how often have you been bothered by any of the following problems? 1. Little interest or pleasure in doing things: several days 2. Feeling down, depressed, or hopeless: not at all 3. Trouble falling or staying asleep, or sleeping too much: several days 4. Feeling tired or having little energy: several days 5. Poor appetite or overeating: not at all 6. Feeling bad about yourself - or that you are a failure or have let yourself or your family down: not at all 7. Trouble concentrating on things, such as reading the newspaper or watching television: not at all 8. Moving or speaking so slowly that other people could have noticed. Or the opposite - being so fidgety or restless that you have been moving around a lot more than usual: not at all 9. Thoughts that you would be better off or of hurting yourself in some way: not at all Total score: 3 Depression Screening Interpretation: Negative Depression Screening Done: Yes 45054 - PHQ-9 Billing: Yes Source: Developed by Drs. Rui Retana, Kenji Pérez and colleagues, with an educational betzaida from [employer]. Thrive Questionnaire Date Thrive assessed: 09/11/23 I am a: Patient What is your living situation today?: I have a steady place to live Within the past 12 months, did the food you bought not last and you didn't have the money to get more?: Never true Within the past 12 months, did you worry whether your food would run out before you got money to buy more?: Never true Do you have trouble paying for medicines?: No Do you have trouble getting transportation to medical appointments?: No Do you have trouble paying your heating and electricity bill?: No Do you have trouble taking care of your child, family member or friend?: No Do you have trouble with day-to-day activities such as bathing, preparing meals, shopping, managing finances, etc.?: No Are you currently unemployed and looking for a job?: No Are you interested in more education?: No THRIVE Score: 0 AUDIT C Alcohol Use Questionnaire (AUDIT-C) 1. How often do you have a drink containing alcohol?: Never Total Score: 0 WILFRIDO-7 AMB Questionnaire WILFRIDO-7 Date WILFRIDO - 7 assessed: 09/11/23 Feeling nervous, anxious, or on edge: 0 = Not at all Not being able to stop or control worryin = Several days Worrying too much about different things: 1 = Several days Trouble relaxin = Not at all Being so restless that it is hard to sit still: 0 = Not at all Becoming easily annoyed or irritable: 0 = Not at all Feeling afraid as if something awful might happen: 0 = Not at all Total WILFRIDO-7 score (0-4 normal; 5-9 mild; 10-14 moderate; 15-21 severe): 2 Source: Developed by Drs. Rui Retana, Kenji Pérez and colleagues, with an educational betzaida from [employer]. WILFRIDO-7 Assessment Billing WILFRIDO-7 Assessment Tool: WILFRIDO-7 Assessment 64639 Review of Systems Const Reports as per HPI, Denies fever(s), Denies headache(s) and Denies weakness Eyes Reports no additional complaints ENT Reports Normal hearing present, Denies headache(s), Denies nasal congestion, Denies nasal discharge and Denies sore throat Card Denies chest pain, Denies palpitations and Denies dyspnea Resp Denies chest congestion, Denies cough, Denies dyspnea and Denies wheezing GI Denies abdominal pain, Denies melena, Denies hematochezia, Denies change in bowel habits and Reports heartburn (Taking omeprazole) Denies urinary frequency, Denies difficulty voiding, Denies dysuria, Denies urinary incontinence and Denies urinary urgency Musc Details: Occasional Joint and back pain, relieved with taking meloxicam, and using by freeze spray, pain stiffness in left knee when going up and down stairs Skin/Breast Denies rash Neuro Reports Normal hearing present, Denies headache(s), Denies Sensory deficit (Neuro) and Denies weakness Psych Reports as per HPI Endo Denies polydipsia, Denies polyuria and Denies palpitations Clark/Lymph Reports no additional complaints Aller/Immun Denies wheezing Physical exam (Primary Care) Vital Signs: Last Vital Signs Pulse 75 09/11/23 10:36 BP 112/66 09/11/23 10:36 Pulse Ox 97 09/11/23 10:36 Oxygen Delivery Method Room Air 09/11/23 10:36 BMI result Body Mass Index 35.7 Tobacco/Smoking Status: Tobacco use Status Tobacco use date assessed 09/11/23 09/11/23 10:41 Patient Tobacco Use Status Never used Tobacco 09/11/23 10:41 e-Cigarette/Vaping Use Never Used 09/11/23 10:41 PHQ-9: PHQ-9 Score PHQ-9: Total score 3 09/11/23 11:23 Depression Screening Interpretation: Negative Thrive Assessment: Date of Thrive Assessment Date Thrive assessed 09/11/23 09/11/23 11:23 Const General: cooperative, healthy appearing, no acute distress and alert Orientation/consciousness: patient oriented x3 Limitations: no limitations HENMT Ears: external ears normal General nose exam: Normal external nose present Face and sinus: Yes face symmetric Mouth: oropharynx normal and moist mucous membranes Eyes Conjunctivae: conjunctivae normal Sclerae: sclerae normal Pupils: Equal, round and reactive pupils present EOM: EOMs intact bilaterally Neck Neck: Yes full ROM and Yes no lymphadenopathy Thyroid: Thyroid normal (Nonpalpable) Carotids: no bruits Chest Chest palpation & inspection: normal inspection of the chest Breast/axilla inspection: normal inspection of the breasts Breast/axilla palpation: normal palpation of the breasts Resp Effort & Inspection: normal respiratory effort and able to speak in complete sentences Auscultation: clear to auscultation bilaterally Cardio Jugular venous distension: no JVD Rate: regular rate Rhythm: regular rhythm Heart sounds: S1 normal heart sound present and S2 normal heart sound present GI Inspection: Yes normal to inspection Palpation (GI): Soft to palpation Auscultation: normal bowel sounds General: Yes no CVA tenderness Back/Spine/Pelvis Back: no CVA tenderness Skin General skin exam: no rashes or lesions noted Neuro General: patient oriented x3, gait normal, moves all extremities, no focal motor deficits and CN's II-XI intact bilaterally Cranial nerves: Yes Equal, round and reactive pupils present and Yes Normal hearing present Cognition (Neuro): normal cognition Gait exam (Neuro): Normal gait present Motor exam (neuro): 5/5 motor strength present throughout Sensory Exam: No Sensory deficit (Neuro) Extrem General: Yes normal to inspection, Yes full ROM, Yes no pedal edema, Yes normal gait and Yes other (Crepitus noted in both knee joint) Psych Appearance: grossly normal and well kempt Mental Status: mental status grossly normal Speech and movement: Normal speech and movement present Affect: normal affect Attitude: cooperative Thought process: Normal thought process present Thought content: Normal thought content present Results Reviewed Results Reviewed: anitra: Kailyn Hill Age/Sex: 63/F : 1960 Unit#: [id number] Attend Dr: Kianna Munguia MD Re09/08/23 Status: DEP [facility]: SPEC : [id number] GERA: 09/08/23 STATUS: COMP REQ : [id number] RECD: 09/08/[address]: Kianna Munguia MD COMP: 09/08/237 ENTERED: 09/08/[address]: ORDERED: Met Prof Fast, AST, ALT, Lipid Panel, Vitamin D 25-OH Test Result Flag Reference Sodium 142 135-145 mmol/L Potassium 3.8 3.3-5.1 mmol/L CL 105 96-108 mmol/L CO2 30 H 22-29 mmol/L Gap 11 L 12-20 BUN 14 9-16 mg/dL Creat 0.83 0.5-1.4 mg/dL EGFR > 60 NOTE: For -Danish individuals, multiply the result by 1.210. Chronic Kidney Disease: Estimated GFR < 60 mL/min/1.73m2 Severe Kidney Disease: Estimated GFR < 15 mL/min/1.73m2 FBS 87 60-99 mg/dL CA 9.7 8.4-10.2 mg/dL AST (GOT) 18 5-31 U/L ALT (GPT) 17 0-31 U/L Triglyceride 141 <150 mg/dL Desirable Triglyceride: less than 150 mg/dL Borderline High Triglyceride 150-199 mg/dL High Triglyceride: 200-499 mg/dL Very High Triglyceride: greater than or equal to 5OO mg/dL Cholesterol 223 H <200 mg/dL Desirable Cholesterol: less than 200 mg/dL Borderline High Cholesterol: 200-239 mg/dL High Cholesterol: greater than 239 mg/dL LDL Calculated 152 H <100 mg/dL Desirable LDL: less than 100 mg/dL Near Optimal/Above Optimal LDL: 110-129 mg/dL Borderline High LDL: 130-159 mg/dL High LDL: 160-189 mg/dL Very High LDL: greater than or equal to 190 mg/dL HDL 43 >40 mg/dL Desirable HDL: greater than 40 mg/dL Note: This HDL assay may give artificially low results in patients with liver disease. Vit D 25-OH Tot 53.3 >30 ng/mL Health Based Reference Values* < 20 ng/mL Deficient 20-30 ng/mL Insufficient > 30 ng/mL Sufficient Assessment and Plan Assessment & Plan (1) Benign positional vertigo: Code(s): H81.10 - Benign paroxysmal vertigo, unspecified ear Qualifiers: Laterality: unspecified laterality Qualified Code(s): H81.10 - Benign paroxysmal vertigo, unspecified ear Plan: Referred back again to vestibular rehab for re-evaluation and treatment of positional vertigo (2) Essential hypertension: Code(s): I10 - Essential (primary) hypertension Plan: Complains of frequent urination, will stop losartan-HCTZ and will place her instead on just losartan 50 mg per tablet to take once a day in a.m. reinforced importance of following a low-salt diet and getting regular exercise. See nurse navigator in 2 weeks to check blood pressure and if within normal limits will continue on current dose of losartan, if still elevated will increase dose of losartan to 100 mg once a day (3) Mixed anxiety depressive disorder: Code(s): F41.8 - Other specified anxiety disorders Plan: Continue with buspirone 5 mg 1 tablet 3 times a day (4) GERD (gastroesophageal reflux disease): Code(s): K21.9 - Gastro-esophageal reflux disease without esophagitis Plan: Try increasing omeprazole 20 mg capsules 2 twice a day dosing at least half an hour before eating , reinforce avoidance of triggers for heartburn (5) Hyperlipidemia: Code(s): E78.5 - Hyperlipidemia, unspecified Qualifiers: Hyperlipidemia type: pure hypercholesterolemia Qualified Code(s): E78.00 - Pure hypercholesterolemia, unspecified Plan: Improvement in her lipid panel noted, continue with adherence to healthy eating habits, do regular exercise, recheck lipids again in 3 months Orders: Orders PT Evaluation and Treatment 09/11/23 H81.10 - Benign paroxysmal vertigo, unspecified ear Aspartate Amino Transferase 12/12/23 E78.00 - Pure hypercholesterolemia, unspecified, F41.8 - Other specified anxiety disorders, I10 - Essential (primary) hypertension, K21.9 - Gastro-esophageal reflux disease without esophagitis Alanine Aminotransferase 12/12/23 E78.00 - Pure hypercholesterolemia, unspecified, F41.8 - Other specified anxiety disorders, I10 - Essential (primary) hypertension, K21.9 - Gastro-esophageal reflux disease without esophagitis Lipid Panel 12/12/23 E78.00 - Pure hypercholesterolemia, unspecified, F41.8 - Other specified anxiety disorders, I10 - Essential (primary) hypertension, K21.9 - Gastro-esophageal reflux disease without esophagitis Basic Metabolic Panel Fasting 12/12/23 E78.00 - Pure hypercholesterolemia, unspecified, F41.8 - Other specified anxiety disorders, I10 - Essential (primary) hypertension, K21.9 - Gastro-esophageal reflux disease without esophagitis Medications: New losartan 50 mg PO DAILY 30 tabs 0RF omeprazole magnesium (Prilosec OTC) 20 mg PO BID 60 tabs 2RF Discontinued losartan-hydrochlorothiazide 50-12.5 mg Discontinued Reason: Doctor's Order 1 tab PO DAILY 90 tabs 1RF Coding Level of Care Code Est Pt Level 4 (25129) Complex EM visit Add On G2211 Diagnoses Benign paroxysmal positional vertigo, unspecified laterality H81.10 Laterality: unspecified laterality Essential hypertension I10 Mixed anxiety depressive disorder F41.8 GERD (gastroesophageal reflux disease) K21.9 Pure hypercholesterolemia E78.00 Hyperlipidemia type: pure hypercholesterolemia Additional Codes WILFRIDO-7 Assessment Billing - WILFRIDO-7 Assessment Tool: WILFRIDO-7 Assessment 04237 ([id number])
== END 2023-09-11 12:09 | disposition home or self-care (01) ==
PROVIDERS: PCP Internal Medicine; Visit Provider Internal Medicine
DX: H81.10 Benign paroxysmal vertigo, unspecified ear (principal); I10 Essential (primary) hypertension; F41.8 Other specified anxiety disorders; K21.9 Gastro-esophageal reflux disease without esophagitis; E78.00 Pure hypercholesterolemia, unspecified
CPT/HCPCS: 99214

== ENCOUNTER 2023-10-25 13:00 | Outpatient (RCR) | payer OTHER, SELFPAY ==
[2023-10-16 14:01] VITALS: BP 146/86; PULSE 68; O2SAT 97
--- NOTE | 2023-10-17 07:47 | MHC.PT.EP ---
[facility] [place] Office [place] Office [place] Office [address] Meena Mueller [address] [phone] F: [phone] F: [phone] F: [phone] F: [phone] Physical Therapy Plan of Care Date of Evaluation: 10/17/23 Date of Surgery: Diagnosis: This is a 63 yo female presenting to skilled PT with a script for BPPV. Assessment: This is a 63 yo female presenting to skilled PT with a script for BPPV. She has been here in the past with good results in resolving her symptoms (2021). Old PT subjective report included: Reports some dizziness when she turns onto her R side in bed for several years. She also notices it when she looks up or moves her head too quickly. However a few months ago, it became worse after she woke up from falling asleep on the couch. She was walking sideways and things were spinning. She went to the ED and was dx with dehydration. Describes dizziness as room spinning, unsteadiness, and nausea. Denies tinnitus and vomiting She tries to sleep on her L side only. Today she reports that she gets lightheaded with looking up and down now as well as driving. Her symptoms have been ongoing since about February. The patient describes dizziness as room-spinning that lasts seconds and occurs with looking up/down and occasionally with driving. She has had these sx for a little over 6 months but has been adjusting her lifestyle to compensate. Examination shows normal saccades, normal smooth pursuits, (-) VBI test B, mild sway with static stance in eyes closed positions and on foam, DGI was 20/24 and (+) R and L posterior canal BPPV. Performed Beny x2 for R and L posterior canal with no nystagmus on second roll, but treated as a precaution each time. Recommend PT 2x/week for 4 weeks to address impairments, implement HEP, and optimize functional mobility. Will re-assess balance once BPPV has resolved. Frequency and Duration: The patient will be seen 2x/wk for 4wks Short Term Goals: reassess canals [employer] Goals: 4 weeks: -Pt will be (-) for nystagmus of reports of vertigo in all diagnostic directions B to resolutions of BPPV in 4 weeks -Tolerate position changes without complaints vertigo to improve safety and return to pre-onset level -Pt to be able to functionally move in all planes without provocation of dizziness and return to PLOF in 4 weeks -Pt to be educated on sx and indications to return to therapy when needed in 4 weeks Treatment Plan: Modalities to reduce pain, spasms and effusion. Manual therapy to restore motion and function. Therapeutic exercise to improve strength and flexibility. Neuromuscular re-education for posture and balance. Therapeutic activities to return to functional activities of daily living. Electronically signed by: Jocelyn Malin, PT Please sign and return to therapist. Thank you for your referral.
--- NOTE | 2023-11-27 07:22 | MHC.PT.DC ---
[facility] [place] Office [place] Office [place] Office [address] Meena Mueller [address] [phone] F: [phone] F: [phone] F: [phone] F: [phone] Physical Therapy Discharge Report Diagnosis: This is a 63 yo female presenting to skilled PT with a script for BPPV. Date of Surgery: Date of Evaluation: 10/17/23 Date of Discharge: 11/27/23 Treatments to Date: 2 Cancellations to Date: 0 No Shows to Date: 0 Discharge Status: Achieved Goals Improved Function Discharge Summary: Last tx note on 10/24: Patient with 1-2 beats of nystagmus in L hallpike. This was clear after I treated it and reassessed the second time. When I went to check the R hallpike, patient turned slightly onto her R shoulder and she had 4-5 beats of horizontal nystagmus. She was clear after a treatment again and reassessment. Patient proceeded to call and cancel remaining appointments as she felt better. Electronically signed by: Jocelyn Malin PT Please sign and return to therapist. Thank you for your referral.
== END 2023-11-27 07:22 | disposition home or self-care (01) ==
LOC: HO.PTCHIC 13:00
PROVIDERS: PCP Internal Medicine; Visit Provider Internal Medicine
DX: H81.10 Benign paroxysmal vertigo, unspecified ear (principal)
CPT/HCPCS: 95992; 97162; 97535

== ENCOUNTER 2023-12-23 08:43 | Outpatient (REF) | payer OTHER, SELFPAY ==
[2023-12-23 11:30] LABS: Alanine Aminotransferase 22 U/L (0-31); Anion Gap 11 (12-20); Aspartate Amino Transferase 19 U/L (5-31); Blood Urea Nitrogen 13 mg/dL (9-16); Calcium 9.6 mg/dL (8.4-10.2); Carbon Dioxide 29 mmol/L (22-29); Chloride 106 mmol/L (96-108); Cholesterol 201 mg/dL (<200); Estimated Glomerular Filt Rate > 60; Glucose Fasting 87 mg/dL (60-99); HDL Cholesterol 40 mg/dL (>40); LDL Cholesterol Calculated 134 mg/dL (<100); Potassium 4.1 mmol/L (3.3-5.1); Sodium 142 mmol/L (135-145); Triglycerides 139 mg/dL (<150)
== END 2023-12-23 08:44 | disposition home or self-care (01) ==
LOC: HO.HMGCLDS 08:43
PROVIDERS: PCP Internal Medicine; Visit Provider Internal Medicine
DX: E78.00 Pure hypercholesterolemia, unspecified (principal); K21.9 Gastro-esophageal reflux disease without esophagitis; F41.8 Other specified anxiety disorders; I10 Essential (primary) hypertension
CPT/HCPCS: 36415; 80048; 80061; 84450; 84460

== ENCOUNTER 2023-12-25 11:34 | Outpatient (AMB) | payer OTHER, SELFPAY ==
[2023-12-25 12:14] VITALS: BP 140/90; PULSE 69; O2SAT 97; BMI 36.5
--- NOTE | 2023-12-25 12:14 | A.OFFPC_ITS ---
Vital Signs 12/25/23 12:14 Height 5 ft 1 in Weight 193 lb BMI 36.5 BP 140/90 H Blood Pressure Location Rt brachial Position Sitting Pulse 69 Pulse Source Pulse Oximeter Pulse Oximetry (%) 97 Oxygen Delivery Method Room Air Intake Visit Reasons: 3M F/U Intake Note: Pt is here today for her 3mo. f/u Allergies Sulfa (Sulfonamide Antibiotics) [SULFA (SULFONAMIDE ANTIBIOTICS)] Allergy (Intermediate, Verified 12/25/23 12:21) WELTS , RASH, RASH egg [EGG] Allergy (Mild, Verified 12/25/23 12:21) RASH escitalopram Allergy (Unknown, Verified 12/25/23 12:21) GI upset, burning lisinopril Allergy (Unknown, Verified 12/25/23 12:21) cough sertraline Allergy (Unknown, Verified 12/25/23 12:21) stomach upset SHELLFISH Allergy (Severe, Uncoded 12/25/23 12:21) ANAPHYLAXIS shellfish Allergy (Unknown, Uncoded 12/25/23 12:21) SOB Medication List - Last Reconciled 12/25/23 by Kianna Munguia MD clotrimazole-betamethasone 1-0.05 % 1 appl topical BID PRN 10 days losartan 50 mg PO DAILY montelukast 10 mg PO DAILY omeprazole magnesium (Prilosec OTC) 20 mg PO BID Tobacco use date assessed: 12/25/23 Dental Screening Dental Screen Date: 12/25/23 Did you have a dental visit in the last 12 months?: No Did you have a dental problem in the last 6 months where you did not have access to dental care?: No Was dental information given to patient?: Patient has dentist HPI 3M F/U HPI Details 63-year-old lady with hypertension, hype rlipidemia, chronic GERD, fibromyalgia, mixed anxiety depression, degenerative disease in lumbosacral spine, here today for follow-up. Blood pressure today is still not at goal despite taking losartan 50 mg. She had recent fasting labs done which showed improvement in LDL cholesterol levels as compared to last check. She states that she stopped taking buspirone 5 mg 1 tab 3 times a day. As it did not really help. She is retired . mostly takes care of her grandchildren now, and is able to control her anxiety attacks with behavioral techniques. Takes omeprazole 20 mg 1 capsule twice a day for control of heartburn symptoms. PFSH Medical History (Updated 12/30/23 @ 23:28 by Kianna Munguia MD) Benign positional vertigo Hyperlipidemia Low back pain Gastritis Sleep apnea GERD (gastroesophageal reflux disease) Fibromyalgia Mixed anxiety depressive disorder Pruritic intertrigo Positional lightheadedness Essential hypertension DDD (degenerative disc disease), lumbosacral Surgical History H/O sinus surgery Hx of cholecystectomy Hx of section Hx of colonoscopy Family History Son Mental health disorder Social History Housing: House Alcohol intake: never Patient Tobacco Use Status: Never used Tobacco e-Cigarette/Vaping Use: Never Used service: No Current occupational status: retired Cognitive needs: No Hearing needs: No Vision needs: Yes Questionnaire PHQ-9 Over the last 2 weeks, how often have you been bothered by any of the following problems? 1. Little interest or pleasure in doing things: not at all 2. Feeling down, depressed, or hopeless: not at all 3. Trouble falling or staying asleep, or sleeping too much: several days 4. Feeling tired or having little energy: several days 5. Poor appetite or overeating: not at all 6. Feeling bad about yourself - or that you are a failure or have let yourself or your family down: several days 7. Trouble concentrating on things, such as reading the newspaper or watching television: not at all 8. Moving or speaking so slowly that other people could have noticed. Or the opposite - being so fidgety or restless that you have been moving around a lot more than usual: not at all 9. Thoughts that you would be better off or of hurting yourself in some way: not at all Total score: 3 Depression Screening Interpretation: Negative Depression Screening Done: Yes Source: Developed by Drs. Rui Retana, Quita Luke, Kenji Landa and colleagues, with an educational betzaida from [email or web address]. Thrive Questionnaire Date Thrive assessed: 12/25/23 I am a: Patient What is your living situation today?: I have a steady place to live Within the past 12 months, did the food you bought not last and you didn't have the money to get more?: Never true Within the past 12 months, did you worry whether your food would run out before you got money to buy more?: Never true Do you have trouble paying for medicines?: No Do you have trouble getting transportation to medical appointments?: No Do you have trouble paying your heating and electricity bill?: No Do you have trouble taking care of your child, family member or friend?: No Do you have trouble with day-to-day activities such as bathing, preparing meals, shopping, managing finances, etc.?: No Are you interested in more education?: No Please select the resources that you would like help with: None Currently or been in a relationship where the following occur: No concerns reported THRIVE Score: 0 AUDIT C Alcohol Use Questionnaire (AUDIT-C) 1. How often do you have a drink containing alcohol?: Monthly or less 2. How many drinks containing alcohol do you have on a typical day when you are drinking?: 1 or 2 3. How often do you have six or more drinks on one occasion?: Never Total Score: 1 WILFRIDO-7 AMB Questionnaire WILFRIDO-7 Date WILFRIDO - 7 assessed: 12/25/23 Feeling nervous, anxious, or on edge: 1 = Several days Not being able to stop or control worryin = Not at all Worrying too much about different things: 1 = Several days Trouble relaxin = Not at all Being so restless that it is hard to sit still: 1 = Several days Becoming easily annoyed or irritable: 0 = Not at all Feeling afraid as if something awful might happen: 0 = Not at all Total WILFRIDO-7 score (0-4 normal; 5-9 mild; 10-14 moderate; 15-21 severe): 3 Source: Developed by Drs. Rui Retana, Quita Luke, Kenji Landa and colleagues, with an educational betzaida from [email or web address]. Review of Systems Const Denies fever(s), Denies headache(s) and Denies weakness ENT Reports Normal hearing present, Denies headache(s), Denies nasal congestion, Denies nasal discharge and Denies sore throat Card Denies chest pain, Denies palpitations and Denies dyspnea Resp Denies chest congestion, Denies cough, Denies dyspnea and Denies wheezing GI Denies abdominal pain, Denies melena, Denies hematochezia, Denies change in ronnell wel habits and Reports heartburn (Taking omeprazole) Denies urinary frequency, Denies difficulty voiding, Denies dysuria, Denies urinary incontinence and Denies urinary urgency Musc Denies myalgias, Reports arthralgias, Denies joint swelling, Denies muscle weakness and Reports stiffness Skin/Breast Denies rash Neuro Reports Normal hearing present, Denies headache(s), Denies Sensory deficit (Neuro) and Denies weakness Psych Reports as per HPI Endo Denies polydipsia, Denies polyuria and Denies palpitations Clark/Lymph Reports no additional complaints Aller/Immun Denies wheezing Physical exam (Primary Care) Vital Signs: Last Vital Signs Pulse 69 12/25/23 12:14 BP 140/90 H 12/25/23 12:14 Pulse Ox 97 12/25/23 12:14 Oxygen Delivery Method Room Air 12/25/23 12:14 BMI result Body Mass Index 36.5 Tobacco/Smoking Status: Tobacco use Status Tobacco use date assessed 12/25/23 12/25/23 12:17 Patient Tobacco Use Status Never used Tobacco 12/25/23 12:17 e-Cigarette/Vaping Use Never Used 12/25/23 12:17 PHQ-9: PHQ-9 Score PHQ-9: Total score 3 12/25/23 12:47 Depression Screening Interpretation: Negative Thrive Assessment: Date of Thrive Assessment Date Thrive assessed 12/25/23 12/25/23 12:17 Currently or been in a relationship where the following occur: No concerns reported Const General: cooperative, healthy appearing, no acute distress and alert Orientation/consciousness: patient oriented x3 Limitations: no limitations HENMT Ears: external ears normal General nose exam: Normal external nose present Face and sinus: Yes face symmetric Mouth: oropharynx normal and moist mucous membranes Eyes Conjunctivae: conjunctivae normal Sclerae: sclerae normal Pupils: Equal, round and reactive pupils present EOM: EOMs intact bilaterally Neck Neck: Yes full ROM and Yes no lymphadenopathy Thyroid: Thyroid normal (Nonpalpable) Chest Chest palpation & inspection: normal inspection of the chest Breast/axilla inspection: normal inspection of the breasts Breast/axilla palpation: normal palpation of the breasts Resp Effort & Inspection: normal respiratory effort and able to speak in complete sentences Auscultation: clear to auscultation bilaterally Cardio Jugular venous distension: no JVD Rate: regular rate Rhythm: regular rhythm Heart sounds: S1 normal heart sound present and S2 normal heart sound present GI Inspection: Yes normal to inspection Palpation (GI): Soft to palpation Auscultation: normal bowel sounds General: Yes no CVA tenderness Back/Spine/Pelvis Back: no CVA tenderness Skin General skin exam: no rashes or lesions noted Neuro General: patient oriented x3, gait normal, moves all extremities, no focal motor deficits and CN's II-XI intact bilaterally Cranial nerves: Yes Equal, round and reactive pupils present and Yes Normal hearing present Cognition (Neuro): normal cognition Gait exam (Neuro): Normal gait present Motor exam (neuro): 5/5 motor strength present throughout Sensory Exam: No Sensory deficit (Neuro) Extrem General: Yes normal to inspection, Yes full ROM, Yes no pedal edema, Yes normal gait and Yes other (Crepitus noted in both knee joint) Psych Appearance: grossly normal and well kempt Mental Status: mental status grossly normal Speech and movement: Normal speech and movement present Affect: normal affect Attitude: cooperative Thought process: Normal thought process present Thought content: Normal thought content present Office Procedures Flu Questionnaire Does the patient have a severe egg allergy?: No Does the patient have severe life threatening allergies?: No Does the patient have a fever or illness today?: No Has the patient ever had Guillain-[place] Syndrome?: No Has the patient ever had any past reaction to a flu shot?: No Immunizations Fluarix Triv [id number] (PF) 45 mcg (15 mcg x 3)/0.5 mL IM syringe Performing Provider: Kianna Munguia MD Performing Location[place] [facility] [place] [facility] Administered by: Luis Ramirez CMA on 12/25/23 12:46 Dose Route Admin Location Dispensed Lot Number Expiration Date 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 [id number] Attend Dr: Kianna Munguia MD Re12/23/23 Status: DEP REF Location: [facility] Disch: SPEC : [id number] GERA: 12/23/23 STATUS: COMP REQ : [id number] RECD: 12/23/23-[address]: Kianna Munguia MD COMP: 12/23/23 ENTERED: 12/23/[address]: ORDERED: Met Prof Fast, AST, ALT, Lipid Panel Test Result Flag Reference Sodium 142 135-145 mmol/L Potassium 4.1 3.3-5.1 mmol/L CL 106 96-108 mmol/L CO2 29 22-29 mmol/L Gap 11 L 12-20 BUN 13 9-16 mg/dL Creat 0.84 0.5-1.4 mg/dL EGFR > 60 NOTE: For -[place] individuals, multiply the result by 1.210. Chronic Kidney Disease: Estimated GFR < 60 mL/min/1.73m2 Severe Kidney Disease: Estimated GFR < 15 mL/min/1.73m2 FBS 87 60-99 mg/dL CA 9.6 8.4-10.2 mg/dL AST (GOT) 19 5-31 U/L ALT (GPT) 22 0-31 U/L Triglyceride 139 <150 mg/dL Desirable Triglyceride: less than 150 mg/dL Borderline High Triglyceride 150-199 mg/dL High Triglyceride: 200-499 mg/dL Very High Triglyceride: greater than or equal to 5OO mg/dL Cholesterol 201 H <200 mg/dL Desirable Cholesterol: less than 200 mg/dL Borderline High Cholesterol: 200-239 mg/dL High Cholesterol: greater than 239 mg/dL LDL Calculated 134 H <100 mg/dL Desirable LDL: less than 100 mg/dL Near Optimal/Above Optimal LDL: 110-129 mg/dL Borderline High LDL: 130-159 mg/dL High LDL: 160-189 mg/dL Very High LDL: greater than or equal to 190 mg/dL HDL 40 L >40 mg/dL Desirable HDL: greater than 40 mg/dL Note: This HDL assay may give artificially low results in patients with liver disease. Coding Level of Care Code Est Pt Level 4 (20738) Complex EM visit Add On G2211 Diagnoses Essential hypertension I10 Pure hypercholesterolemia E78.00 Hyperlipidemia type: pure hypercholesterolemia Mixed anxiety depressive disorder F41.8 Needs flu shot Z23 Gastroesophageal reflux disease, unspecified whether esophagitis present K21.9 Esophagitis presence: esophagitis presence not specified Assessment & Plan Assessment & Plan (1) Essential hypertension: Code(s): I10 - Essential (primary) hypertension Category: Medical Plan: Blood pressure not at goal of less than 130/80. Will increase losartan dose to 100 mg daily in am. Reinforced importance of following a low-salt diet and emphasized importance of doing cardio exercises on a regular basis. Continue check blood pressure at home, bring blood pressure monitor on next visit in March (2) Hyperlipidemia: Code(s): E78.5 - Hyperlipidemia, unspecified Category: Medical Qualifiers: Hyperlipidemia type: pure hypercholesterolemia Qualified Code(s): E78.00 - Pure hypercholesterolemia, unspecified Plan: Reviewed recent fasting lab results with patient with improvement in her lipid levels seen continue with adherence to healthy eating habits but also recommended to do he has a 15 minutes cardio workout 3 to 4 times a week to prevent further weight gain (3) Mixed anxiety depressive disorder: Code(s): F41.8 - Other specified anxiety disorders Category: Medical Plan: Patient states that she is able to control her anxiety attacks, does not want to start medications at present time, buspirone did not help (4) Needs flu shot: Code(s): Z23 - Encounter for immunization Plan: Flu vaccine given today (5) GERD (gastroesophageal reflux disease): Code(s): K21.9 - Gastro-esophageal reflux disease without esophagitis Category: Medical Qualifiers: Esophagitis presence: esophagitis presence not specified Qualified Code(s): K21.9 - Gastro-esophageal reflux disease without esophagitis Plan: Currently on omeprazole 20 mg 1 capsule twice a day avoidance of triggers reinforced Orders: Orders Influenza [id number] Immunization 12/25/23 Z23 - Encounter for immunization Medications: Changed From losartan 50 mg PO DAILY 90 tabs 3RF To losartan 100 mg PO DAILY 90 tabs 3RF
== END 2023-12-25 13:45 | disposition home or self-care (01) ==
PROVIDERS: PCP Internal Medicine; Visit Provider Internal Medicine
DX: I10 Essential (primary) hypertension (principal); E78.00 Pure hypercholesterolemia, unspecified; F41.8 Other specified anxiety disorders; K21.9 Gastro-esophageal reflux disease without esophagitis

== ENCOUNTER → 2023-12-25 11:34 | Outpatient (BNVA) | payer OTHER, SELFPAY | PROVIDERS: PCP Internal Medicine; Visit Provider Internal Medicine | DX: I10 Essential (primary) hypertension (principal); E78.00 Pure hypercholesterolemia, unspecified; F41.8 Other specified anxiety disorders; K21.9 Gastro-esophageal reflux disease without esophagitis; Z79.899 Other long term (current) drug therapy; Z23 Encounter for immunization | CPT/HCPCS: 90471; 90656; 96127 ==

== ENCOUNTER 2024-04-19 15:57 | Outpatient (REF) | payer MEDICARE, SELFPAY | END 2024-04-19 15:58 | disposition home or self-care (01) | LOC: HO.MAMMO 15:57 | PROVIDERS: PCP Internal Medicine; Visit Provider Internal Medicine | DX: Z12.31 Encounter for screening mammogram for malignant neoplasm of breast (principal) | CPT/HCPCS: 77063; 77067 ==

== ENCOUNTER → 2024-04-19 16:00 | Outpatient (BNV) | payer MEDICARE, SELFPAY | PROVIDERS: PCP Internal Medicine; Visit Provider Internal Medicine | DX: Z12.31 Encounter for screening mammogram for malignant neoplasm of breast (principal) | CPT/HCPCS: 77063; 77067 ==

== ENCOUNTER 2024-07-02 09:36 | Outpatient (AMB) | payer MEDICARE, SELFPAY ==
--- NOTE | 2024-07-02 10:21 | A.OFFVIS_ITS ---
Intake Vital Signs 07/02/24 10:22 07/02/24 15:38 Height 5 ft 1 in Weight 198 lb BMI 37.4 BP 140/80 H 130/85 Blood Pressure Location Rt brachial Lt brachial Position Sitting Sitting Respiration 16 Pulse 75 Pulse Source Pulse Oximeter Pulse Oximetry (%) 95 Oxygen Delivery Method Room Air Intake Visit Reasons: AWV G0438 Intake Note: Pt is here today for her AWV: Eye Exam OS 20/50, OD 20/50, OU 20/40 uncorrective lens Allergies Sulfa (Sulfonamide Antibiotics) [SULFA (SULFONAMIDE ANTIBIOTICS)] Allergy (Intermediate, Verified 07/02/24 11:03) WELTS , RASH, RASH egg [EGG] Allergy (Mild, Verified 07/02/24 11:03) RASH escitalopram Allergy (Unknown, Verified 07/02/24 11:03) GI upset, burning lisinopril Allergy (Unknown, Verified 07/02/24 11:03) cough sertraline Allergy (Unknown, Verified 07/02/24 11:03) stomach upset SHELLFISH Allergy (Severe, Uncoded 07/02/24 11:03) ANAPHYLAXIS shellfish Allergy (Unknown, Uncoded 07/02/24 11:03) SOB Medication List - Last Reconciled 07/02/24 by Kianna Munguia MD losartan 100 mg PO DAILY montelukast 10 mg PO DAILY omeprazole magnesium (Prilosec OTC) 20 mg PO BID HPI AWV G0438 HPI Details IPPE ? 64 year old with history of hypertension, chronic GERD, fibromyalgia, hyperlipidemia, and lumbosacral degenerative disc disease presents for her ? Annual Wellness Visit, initial visit.? Blood pressure stable and controlled on current dose of losartan 100 mg taken once a day, and takes omeprazole 20 mg twice a day which has been controlling her heartburn symptoms. Takes [id number] Tylenol as needed for her joint and back pains. She is up-to-date with her screening mammogram, last done 09/2024 with benign findings, last bone density scan was done on 04/13/2023 which showed normal results. Up-to-date with her screening colonoscopy done by Dr. Delong 03/18/2022 with removal of tubular adenomatous polyps, repeat colonoscopy due a gain in 2027. She had her last cervical cancer screening and pelvic exam done 03/04/2022 which showed negative findings, , patient indicated that she does not want to get any further screenings or pelvic exams. Last lipids screening was done 12/23/2023 which showed total cholesterol 201, LDL 134 with triglycerides 139 and HDL cholesterol 40. She had a normal fasting blood sugar 12/23/2023, which came back at 87 mg/dL. She is up-to-date with her yearly flu shot, has had COVID vaccines in the past does not want to get anymore booster shots, and has not yet had her shingles vaccine or pneumococcal vaccination. ? Medical / Social History Reviewed? Past Medical History ?Yes . ? [place] of Care / Care Team list updated ?Yes . ? Surgical/Hospitalization History ?Yes . ? Current Medications (including OTC and supplements) ?Yes . ? Family History ?Yes . ? Tobacco Control form ?Yes . ? AUDIT-C (Alcohol use) form ?Yes . ? Illicit drug use in Social History ?Yes . ? Current diagnosis of depression? ?No ? Appropriate PHQ2/PHQ9 completed ?Yes . ? Data entered by ?[facility] and reviewed by provider ? Fall Risk ? Fall History? Have you had any falls with injury in the past year? ?No . ? Have you had two or more falls in the past year? ?No . ? Fall Risk Assessment: ?No falls in the past year . ? HRA filled out by the patient, reviewed by Provider and scanned. ? IPPE/AWV ? Balance? Romberg ?negative ? Tandem walk ?Yes . ? Walk and Turn ?Yes . ? Rise from sit to stand ?Yes . ?Vision? Corrective lens- no Eye Exam OS 20/50, OD 20/50, OU 20/40 uncorrective lens ? Vision screen ? Up-to-date, she goes to [facility] for her routine eye exam ?Hearing? Whisper test ?pass . ?Written Plan?Completed. See Patient Documents.? [facility] Medical History (Updated 07/02/24 @ 15:46 by Kianna Munguia MD) History of vertigo Hyperlipidemia GERD (gastroesophageal reflux disease) Fibromyalgia Essential hypertension DDD (degenerative disc disease), lumbosacral Surgical History H/O sinus surgery Hx of cholecystectomy Hx of section Hx of colonoscopy Family History Son Mental health disorder Social History Housing: House Alcohol intake: never Patient Tobacco Use Status: Never used Tobacco e-Cigarette/Vaping Use: Never Used service: No Current occupational status: retired Cognitive needs: No Hearing needs: No Vision needs: Yes Questionnaire Medicare Wellness Checkup [age] What gender do you identify with?: female During the past 4 weeks, how much have you been bothered by emotional problems such as feeling anxious, depressed, irritable, sad or downhearted, and blue?: slightly During the past 4 weeks, has your physical & emotional health limited your social activities with family, friends, neighbors, or groups?: not at all During the past 4 weeks, how much bodily pain have you generally had?: mild pain During the past 4 weeks, was someone available to help you if you needed & wanted help?: yes, as much as I wanted During the past 4 weeks, what was the hardest physical activity you could do for at least 2 minutes?: moderate Can you get to places out of walking distance without help? (For eg., can you travel alone on buses, taxis or drive your car?): Yes Can you go shopping for groceries or clothes without someone's help?: Yes Can you prepare your own meals?: Yes Can you do your housework without help?: Yes Because of any health problems, do you need the help of another person with your personal care needs such as eating, bathing, dressing or getting around the house?: No Can you handle your own money without help?: Yes During the past 4 weeks, how would you rate your health in general?: good During the past 4 weeks how have things been going for you?: good & bad parts about equal Are you having difficulties driving your car?: no Do you always fasten your seat belt when you are in a car?: yes, usually During past 4 weeks, have you been bothered by the following: never: Problems using the telephone?, seldom: Falling or dizzy when standing up, Sexual problems? and Tiredness or fatigue? and sometimes: Teeth or denture problems? Have you fallen 2 or more times in the past year?: No Are you afraid of falling?: No Are you a smoker?: no During the past 4 weeks, how many drinks of wine, beer, or other alcoholic beverages did you have?: no alcohol at all Do you exercise for about 20 minutes 3 or more times a week?: no, I usually do not exercise this much Have you been given information to help with the following?: no: Hazards in your house that might hurt you? and no: Keeping track of your medications? How often do you have trouble taking medicines the way you have been told to take them?: I always take medicine as prescribed How confident are you that you can control & manage most of your health pr oblems?: very confident What is your race?: or origin or descent Mini Mental State Exam (MMSE) Orientation What is the (year) (season) (date) (day) (month)?: year (2024), season (Spring), date (07/02/2024), day (Monday) and month (June) Where are we (state) (county) (town or city) (hospital) (floor)?: state ([place]), county ([place]), town or city ([place]) and hospital/clinic ([facility]) Score Score: 9 Activity of Daily Living Bathing - sponge bath, tub bath or shower: receives no assistance (gets in/out by self, if usual bathing means Dressing - getting clothes from closets & drawers, including inner/outer garments & fasteners.: gets clothes & gets completely dressed without help Toileting - going to the 'toilet room' for urine/bowel elimination & cleaning self/arranging clothes: goes to toilet room, cleans self, arranges clothes without help Transfer: moves in & out of bed and chair without help (may use support object) Continence: controls urination/bowel movements completely by self Feeding: feeds self without help Total Score: 0 Information obtained from: patient Using telephone: independent Traveling: independent Shopping: independent Preparing meals: independent Housework: independent Taking medicine: independent Managing money: independent PHQ-9 Over the last 2 weeks, how often have you been bothered by any of the following problems? 1. Little interest or pleasure in doing things: not at all 2. Feeling down, depressed, or hopeless: not at all 3. Trouble falling or staying asleep, or sleeping too much: several days 4. Feeling tired or having little energy: several days 5. Poor appetite or overeating: not at all 6. Feeling bad about yourself - or that you are a failure or have let yourself or your family down: not at all 7. Trouble concentrating on things, such as reading the newspaper or watching television: not at all 8. Moving or speaking so slowly that other people could have noticed. Or the opposite - being so fidgety or restless that you have been moving around a lot more than usual: not at all 9. Thoughts that you would be better off or of hurting yourself in some way: not at all Total score: 2 Depression Screening Interpretation: Negative Depression Screening Done: Yes 51282 - PHQ-9 Billing: Yes Source: Developed by Drs. Rui Retana, Quita Luke, Kenji Landa and colleagues, with an educational betzaida from [employer] Physical Exam Vital Signs: Last Vital Signs Pulse 75 07/02/24 10:22 Resp 16 07/02/24 10:22 BP 130/85 07/02/24 15:38 Pulse Ox 95 07/02/24 10:22 Oxygen Delivery Method Room Air 07/02/24 10:22 BMI result Body Mass Index 37.4 Assessment & Plan Assessment & Plan (1) Essential hypertension: Code(s): I10 - Essential (primary) hypertension Plan: Continue on losartan 100 mg taken daily (2) GERD (gastroesophageal reflux disease): Code(s): K21.9 - Gastro-esophageal reflux disease without esophagitis Qualifiers: Esophagitis presence: esophagitis presence not specified Qualified Code(s): K21.9 - Gastro-esophageal reflux disease without esophagitis Plan: Currently on omeprazole 20 mg twice a day (3) Hyperlipidemia: Code(s): E78.5 - Hyperlipidemia, unspecified Qualifiers: Hyperlipidemia type: pure hypercholesterolemia Qualified Code(s): E 78.00 - Pure hypercholesterolemia, unspecified Plan: Reinforced importance of following a low-cholesterol diet and getting regular exercise. (4) Encounter for counseling regarding advance directives: Code(s): Z71.89 - Other specified counseling Plan: Initiated the conversation about Advanced Directives. Advanced Directives help patients prepare for current and future decisions about their medical treatment and place of care. Discussed with patient that it is a process where a patients current condition and prognosis are reviewed, their wishes for information regarding their illness are elicited, and likely medical dilemmas are presented and options discussed. MOLST and healthcare proxy form completed. These forms can be amended as needed, reviewed yearly and make changes as needed (5) Encounter for initial annual wellness visit in Medicare patient: Code(s): Z00.00 - Encounter for general adult medical examination without abnormal findings Plan: Medical wellness checklist reviewed, discussed with patient and updated. Reminded to get yearly flu vaccine and, pneumonia vaccine and shingles vaccine. Orders: Orders Aspartate Amino Transferase 12/11/24 E78.00 - Pure hypercholesterolemia, unspecified, I10 - Essential (primary) hypertension Alanine Aminotransferase 12/11/24 E78.00 - Pure hypercholesterolemia, unspecified, I10 - Essential (primary) hypertension, Z00.00 - Encounter for general adult medical examination without abnormal findings, Z71.89 - Other specified counseling Basic Metabolic Panel Fasting 12/11/24 E78.00 - Pure hypercholesterolemia, unspecified, I10 - Essential (primary) hypertension, Z00.00 - Encounter for general adult medical examination without abnormal findings, Z71.89 - Other specified counseling Lipid Panel 12/11/24 E78.00 - Pure hypercholesterolemia, unspecified, I10 - Essential (primary) hypertension, Z00.00 - Encounter for general adult medical examination without abnormal findings, Z71.89 - Other specified counseling Vitamin D 25-OH Total 12/11/24 E78.00 - Pure hypercholesterolemia, unspecified, I10 - Essential (primary) hypertension, Z00.00 - Encounter for general adult medical examination without abnormal findings, Z71.89 - Other specified counseling Quality Reporting (2019) Depression/Bipolar (159/160/161/177) PHQ-9: Total score: 2 Coding Level of Care Code Medicare IPPE (G0402) Diagnoses Essential hypertension I10 Gastroesophageal reflux disease, unspecified whether esophagitis present K21.9 Esophagitis presence: esophagitis presence not specified Pure hypercholesterolemia E78.00 Hyperlipidemia type: pure hypercholesterolemia Encounter for counseling regarding advance directives Z71.89 Encounter for initial annual wellness visit in Medicare patient Z00.00 CPT Codes Advance Care Planning - Time spent: 16-45 minutes ([id number]) Additional Codes PHQ-9 - 80679 - PHQ-9 Billing: Yes ([id number]) Advance Care Planning Advance Care Planning discussion: Completed/Scanned Date of discussion: 07/02/24 Who was present: Patient Forms completed: Health Care Proxy and MOLST Time spent: 16-45 minutes Actual minutes spent: 5
[2024-07-02 10:22] VITALS: BP 140/80; PULSE 75; RESP 16; O2SAT 95; BMI 37.4
[2024-07-02 15:38] VITALS: BP 130/85
== END 2024-07-02 11:20 | disposition home or self-care (01) ==
PROVIDERS: PCP Internal Medicine; Visit Provider Internal Medicine
DX: Z00.00 Encounter for general adult medical examination without abnormal findings (principal); I10 Essential (primary) hypertension; K21.9 Gastro-esophageal reflux disease without esophagitis; E78.00 Pure hypercholesterolemia, unspecified; Z71.89 Other specified counseling

== ENCOUNTER → 2024-07-02 09:36 | Outpatient (BNVA) | payer MEDICARE, SELFPAY | PROVIDERS: PCP Internal Medicine; Visit Provider Internal Medicine | DX: Z00.00 Encounter for general adult medical examination without abnormal findings (principal); I10 Essential (primary) hypertension; K21.9 Gastro-esophageal reflux disease without esophagitis; E78.00 Pure hypercholesterolemia, unspecified; Z71.89 Other specified counseling | CPT/HCPCS: 96127; G0402 ==

== ENCOUNTER 2025-01-01 08:34 | Outpatient (REF) | payer MEDICARE, SELFPAY ==
[2025-01-01 11:09] LABS: Alanine Aminotransferase 38 U/L (0-31); Anion Gap 10 (12-20); Aspartate Amino Transferase 32 U/L (5-31); Blood Urea Nitrogen 14 mg/dL (9-16); Calcium 9.2 mg/dL (8.4-10.2); Carbon Dioxide 31 mmol/L (22-29); Chloride 108 mmol/L (96-108); Cholesterol 213 mg/dL (<200); Estimated Glomerular Filt Rate > 60; HDL Cholesterol 35 mg/dL (>40); Potassium 4.5 mmol/L (3.3-5.1); Sodium 144 mmol/L (135-145); Triglycerides 178 mg/dL (<150)
== END 2025-01-01 08:35 | disposition home or self-care (01) ==
LOC: HO.HMGCLDS 08:34
PROVIDERS: PCP Internal Medicine; Visit Provider Internal Medicine
DX: Z00.00 Encounter for general adult medical examination without abnormal findings (principal); E78.00 Pure hypercholesterolemia, unspecified; I10 Essential (primary) hypertension; Z13.21 Encounter for screening for nutritional disorder; Z71.89 Other specified counseling
CPT/HCPCS: 36415; 80048; 80061; 82306; 84450; 84460

== ENCOUNTER 2025-01-06 09:25 | Outpatient (AMB) | payer MEDICARE, SELFPAY ==
[2025-01-06 10:26] VITALS: BP 136/80; PULSE 74; TEMP 36.6; O2SAT 92; BMI 38.9
--- NOTE | 2025-01-06 10:26 | A.OFFPC_ITS ---
Vital Signs 01/06/25 10:26 Height 5 ft 1 in Weight 206 lb BMI 38.9 BP 136/80 Blood Pressure Location Rt brachial Position Sitting Pulse 74 Pulse Source Pulse Oximeter Temp 97.8 F Temp Source Oral Pulse Oximetry (%) 92 Oxygen Delivery Method Room Air Intake Visit Reasons: 6 months f/up Intake Note: Pt is here today for her 6mo. 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 Required: No Allergies Sulfa (Sulfonamide Antibiotics) (SULFA (SULFONAMIDE ANTIBIOTICS)) Allergy (Intermediate, Verified 01/06/25 10:39) WELTS , RASH, RASH egg (EGG) Allergy (Mild, Verified 01/06/25 10:39) RASH escitalopram Allergy (Unknown, Verified 01/06/25 10:39) GI upset, burning lisinopril Allergy (Unknown, Verified 01/06/25 10:39) cough sertraline Allergy (Unknown, Verified 01/06/25 10:39) stomach upset SHELLFISH Allergy (Severe, Uncoded 01/06/25 10:39) ANAPHYLAXIS shellfish Allergy (Unknown, Uncoded 01/06/25 10:39) SOB Medication List - Last Reconciled 01/06/25 by Kianna Munguia MD losartan 100 mg PO DAILY montelukast 10 mg PO DAILY omeprazole magnesium (Prilosec OTC) 20 mg PO BID Tobacco use date assessed: 01/06/25 Fall risk assessment: No Falls in past year Last assessed Fall Risk: 01/06/25 Dental Screening Dental Screen Date: 01/17/24 Did you have a dental visit in the last 12 months?: No Did you have a dental problem in the last 6 months where you did not have access to dental care?: No Was dental information given to patient?: Patient has dentist HPI 6 months f/up HPI Details The patient is a 64-year-old female with past medical history significant for hypertension, seasonal allergies and GERD, presenting today for her follow-up . She reports recent weight gain, which she attributes to being less active now that she is retired. Her activity consists mainly of bring her grandkids do an from school and doing housework. Her recent lab work showed worsening dyslipidemia, with triglycerides increasing from 139 mg/dL to 179 mg/dL, total cholesterol from 201 mg/dL to 213 mg/dL, and LDL cholesterol from 134 mg/dL to 143 mg/dL. Her HDL cholesterol decreased from 40 mg/dL to 35 mg/dL. Liver function tests were slightly elevated, while blood sugar, electrolytes and hemoglobin were normal. Her vitamin D level is normal. She has hypertension treated with losartan. An EKG performed in June of this year showed a normal sinus rhythm, and she underwent a stress test two years ago. Regarding her activity level, she recently bought an exercise bike but can only manage about three minutes at a time due to leg fatigue and feeling out of shape. She has faced some difficulty using the bike due to her short stature. She has a history of arthritis in her back. Preventative screenings include a normal mammogram in April of this year and a normal bone density scan last year. She only needs glasses for reading and de nies any history of cataracts or glaucoma. [facility] Medical History History of vertigo Hyperlipidemia GERD (gastroesophageal reflux disease) Fibromyalgia Essential hypertension DDD (degenerative disc disease), lumbosacral Surgical History H/O sinus surgery Hx of cholecystectomy Hx of section Hx of colonoscopy Family History Son Mental health disorder Social History Housing: House Alcohol intake: never Patient Tobacco Use Status: Never used Tobacco e-Cigarette/Vaping Use: Never Used service: No Current occupational status: retired Cognitive needs: No Hearing needs: No Vision needs: Yes Questionnaire PHQ-9 Over the last 2 weeks, how often have you been bothered by any of the following problems? 1. Little interest or pleasure in doing things: not at all 2. Feeling down, depressed, or hopeless: not at all 3. Trouble falling or staying asleep, or sleeping too much: several days 4. Feeling tired or having little energy: several days 5. Poor appetite or overeating: not at all 6. Feeling bad about yourself - or that you are a failure or have let yourself or your family down: not at all 7. Trouble concentrating on things, such as reading the newspaper or watching television: not at all 8. Moving or speaking so slowly that other people could have noticed. Or the opposite - being so fidgety or restless that you have been moving around a lot more than usual: not at all 9. Thoughts that you would be better off or of hurting yourself in some way: not at all Total score: 2 Depression Screening Interpretation: Negative Depression Screening Done: Yes Source: Developed by Drs. Rui Retana, Quita Luke, Kenji Landa and colleagues, with an educational betzaida from [employer]. Thrive Questionnaire Date Thrive assessed: 07/02/24 I am a: Patient What is your living situation today?: I have a steady place to live Within the past 12 months, did the food you bought not last and you didn't have the money to get more?: Never true Within the past 12 months, did you worry whether your food would run out before you got money to buy more?: Never true Do you have trouble paying for medicines?: No Do you have trouble getting transportation to medical appointments?: No Do you have trouble paying your heating and electricity bill?: No Do you have trouble taking care of your child, family member or friend?: No Do you have trouble with day-to-day activities such as bathing, preparing meals, shopping, managing finances, etc.?: No Are you currently unemployed and looking for a job?: No Are you interested in more education?: No Please select the resources that you would like help with: None Currently or been in a relationship where the following occur: No concerns reported THRIVE Score: 0 AUDIT C Alcohol Use Questionnaire (AUDIT-C) 1. How often do you have a drink containing alcohol?: Monthly or less 2. How many drinks containing alcohol do you have on a typical day when you are drinking?: 1 or 2 3. How often do you have six or more drinks on one occasion?: Never Total Score: 1 Score Reviewed/Action Taken: Yes WILFRIDO-7 AMB Questionnaire WILFRIDO-7 Date WILFRIDO - 7 assessed: 01/06/25 Feeling nervous, anxious, or on edge: 1 = Several days Not being able to stop or control worryin = Not at all Worrying too much about different things: 1 = Several days Trouble relaxin = Not at all Being so restless that it is hard to sit still: 1 = Several days Becoming easily annoyed or irritable: 0 = Not at all Feeling afraid as if something awful might happen: 0 = Not at all Total WILFRIDO-7 score (0-4 normal; 5-9 mild; 10-14 moderate; 15-21 severe): 3 Source: Developed by Drs. Rui Retana, Quita Luke, Kenji Landa and colleagues, with an educational betzaida from [employer]. WILFRIDO-7 Assessment Billing WILFRIDO-7 Assessment Tool: WILFRIDO-7 Assessment 42616 Review of Systems Const Denies fever(s), Denies headache(s) and Denies weakness Eyes Denies change in vision ENT Reports Normal hearing present, Denies headache(s), Denies nasal congestion, Denies nasal discharge and Denies sore throat Card Denies chest pain, Denies palpitations and Denies dyspnea Resp Denies chest congestion, Denies cough, Denies dyspnea and Denies wheezing GI Denies abdominal pain, Denies melena, Denies hematochezia, Denies change in bowel habits and Reports heartburn (Taking omeprazole) Denies urinary frequency, Denies difficulty voiding, Denies dysuria, Denies urinary incontinence and Denies urinary urgency Musc Denies myalgias, Reports arthralgias, Denies joint swelling, Denies muscle weakness and Reports stiffness Skin/Breast Denies rash Neuro Reports Normal hearing present, Denies headache(s), Denies Sensory deficit (Neuro) and Denies weakness Psych Reports as per HPI Endo Denies polydipsia, Denies polyuria and Denies palpitations Clark/Lymph Reports no additional complaints Aller/Immun Denies wheezing Physical exam (Primary Care) Vital Signs: Last Vital Signs Temp 97.8 F 01/06/25 10:26 Pulse 74 01/06/25 10:26 BP 136/80 01/06/25 10:26 Pulse Ox 92 01/06/25 10:26 Oxygen Delivery Method Room Air 01/06/25 10:26 BMI result Body Mass Index 38.9 Tobacco/Smoking Status: Tobacco use Status Tobacco use date assessed 01/06/25 01/06/25 10:31 Patient Tobacco Use Status Never used Tobacco 01/06/25 10:31 e-Cigarette/Vaping Use Never Used 10/27/25 10:31 PHQ-9: PHQ-9 Score PHQ-9: Total score 2 01/06/25 10:39 Depression Screening Interpretation: Negative Thrive Assessment: Date of Thrive Assessment Date Thrive assessed 07/02/24 01/06/25 10:31 Currently or been in a relationship where the following occur: No concerns reported Const General: no acute distress and alert Nutritional Appearance: obese Orientation/consciousness: patient oriented x3 Limitations: no limitations HENMT Ears: external ears normal General nose exam: Normal external nose present Face and sinus: Yes face symmetric Mouth: oropharynx normal and moist mucous membranes Eyes Conjunctivae: conjunctivae normal Sclerae: sclerae normal Pupils: Equal, round and reactive pupils present EOM: EOMs intact bilaterally Neck Neck: Yes full ROM and Yes no lymphadenopathy Thyroid: Thyroid normal (Nonpalpable) Resp Effort & Inspection: normal respiratory effort and able to speak in complete sentences Auscultation: clear to auscultation bilaterally Cardio Rate: regular rate Rhythm: regular rhythm Heart sounds: S1 normal heart sound present and S2 normal heart sound present GI Inspection: Yes normal to inspection Palpation (GI): Soft to palpation Auscultation: normal bowel sounds General: Yes no CVA tenderness Back/Spine/Pelvis Back: no CVA tenderness Skin General skin exam: no rashes or lesions noted Neuro General: patient oriented x3, gait normal, moves all extremities, no focal motor deficits and CN's II-XI intact bilaterally Cranial nerves: Yes Equal, round and reactive pupils present and Yes Normal hearing present Cognition (Neuro): normal cognition Gait exam (Neuro): Normal gait present Motor exam (neuro): 5/5 motor strength present throughout Sensory Exam: No Sensory deficit (Neuro) Extrem General: Yes normal to inspection, Yes full ROM, Yes no pedal edema, Yes normal gait and Yes other (Crepitus noted in both knee joint) Psych Appearance: grossly normal and well kempt Mental Status: mental status grossly normal Speech and movement: Normal speech and movement present Affect: normal affect Attitude: cooperative Results Reviewed Results Reviewed: Name: Kailyn Hill Age/Sex: 64/F : 1960 Unit#: [id number] Attend Dr: Kianna Munguia MD Re01/01/25 Status: DEP REF Location: [facility] Disch: SPEC : [id number] GERA: 01/01/25 STATUS: COMP REQ : [id number] RECD: 01/01/[address]: Kianna Munguia MD COMP: 01/01/25 ENTERED: 01/01/25 [facility] DR: ORDERED: Met Prof Fast, AST, ALT, Lipid Panel, Vitamin D 25-OH Test Result Flag Reference Sodium 144 135-145 mmol/L Potassium 4.5 3.3-5.1 mmol/L CL 108 96-108 mmol/L CO2 31 H 22-29 mmol/L Gap 10 L 12-20 BUN 14 9-16 mg/dL Creat 0.76 0.5-1.4 mg/dL eGFR > 60 Chronic Kidney Disease: Estimated GFR < 60 mL/min/1.73m2 Severe Kidney Disease: Estimated GFR < 15 mL/min/1. 73m2 FBS 97 60-99 mg/dL CA 9.2 8.4-10.2 mg/dL AST (GOT) 32 H 5-31 U/L ALT (GPT) 38 H 0-31 U/L Triglyceride 178 H <150 mg/dL Desirable Triglyceride: less than 150 mg/dL Borderline High Triglyceride 150-199 mg/dL High Triglyceride: 200-499 mg/dL Very High Triglyceride: greater than or equal to 5OO mg/dL Cholesterol 213 H <200 mg/dL Desirable Cholesterol: less than 200 mg/dL Borderline High Cholesterol: 200-239 mg/dL High Cholesterol: greater than 239 mg/dL LDL Calculated 143 H <100 mg/dL Desirable LDL: less than 100 mg/dL Near Optimal/Above Optimal LDL: 110-129 mg/dL Borderline High LDL: 130-159 mg/dL High LDL: 160-189 mg/dL Very High LDL: greater than or equal to 190 mg/dL HDL 35 L >40 mg/dL Desirable HDL: greater than 40 mg/dL Note: This HDL assay may give artificially low results in patients with liver disease. Vitamin D 25-OH 34.9 >30 ng/mL Health Based Reference Values* < 20 ng/mL Deficient 20-30 ng/mL Insufficient > 30 ng/mL Sufficient Coding Level of Care Code Est Pt Level 4 (11826) Complex EM visit Add On G2211 Diagnoses Essential hypertension I10 Gastroesophageal reflux disease, unspecified whether esophagitis present K21.9 Esophagitis presence: esophagitis presence not specified Pure hypercholesterolemia E78.00 Hyperlipidemia type: pure hypercholesterolemia Additional Codes WILFRIDO-7 Assessment Billing - WILFRIDO-7 Assessment Tool: WILFRIDO-7 Assessment 11087 ([id number]) Assessment & Plan Assessment & Plan (1) Essential hypertension: Code(s): I10 - Essential (primary) hypertension Category: Medical Plan: blood pressure not well controlled, on losartan 100 mg daily. Reinforced importance of adhering to healthy eating habits, cutting back on salt intake and processed food, and getting at least 15-30 minutes of moderate intensity e xercise 3 to 4 times a week. Goal blood pressure less than 130/80. Will see her back for follow-up in six-months after repeat fasting labs done (2) GERD (gastroesophageal reflux disease): Code(s): K21.9 - Gastro-esophageal reflux disease without esophagitis Category: Medical Qualifiers: Esophagitis presence: esophagitis presence not specified Qualified Code(s): K21.9 - Gastro-esophageal reflux disease without esophagitis Plan: takes omeprazole 20 mg 1 capsule (3) Hyperlipidemia: Code(s): E78.5 - Hyperlipidemia, unspecified Category: Medical Qualifiers: Hyperlipidemia type: pure hypercholesterolemia Qualified Code(s): E78.00 - Pure hypercholesterolemia, unspecified Plan: fasting lipids showed elevated triglycerides and LDL cholesterol, with low HDL cholesterol, worse than last check. Reviewed importance of adhering to healthy eating habits, advised to switching to a Mediterranean diet which consists of higher intake of fiber, lean meat, fish, vegetables and avoidance of processed foods, meat, advised to do do moderate intensity exercise 30 minutes at least 3 to 4 times a week to help improve cholesterol levels. Will check levels again in six-months Orders: Orders Basic Metabolic Panel Fasting 06/14/25 E78.00 - Pure hypercholesterolemia, unspecified, I10 - Essential (primary) hypertension, K21.9 - Gastro-esophageal reflux disease without esophagitis Alanine Aminotransferase 06/14/25 E78.00 - Pure hypercholesterolemia, unspecified, I10 - Essential (primary) hypertension, K21.9 - Gastro-esophageal reflux disease without esophagitis Lipid Panel 06/14/25 E78.00 - Pure hypercholesterolemia, unspecified, I10 - Essential (primary) hypertension, K21.9 - Gastro-esophageal reflux disease without esophagitis Vitamin D 25-OH Total 06/14/25 E78.00 - Pure hypercholesterolemia, unspecified, I10 - Essential (primary) hypertension, K21.9 - Gastro-esophageal reflux disease without esophagitis Aspartate Amino Transferase 06/14/25 E78.00 - Pure hypercholesterolemia, unspecified, I10 - Essential (primary) hypertension, K21.9 - Gastro-esophageal reflux disease without esophagitis Hemoglobin and Hematocrit 06/14/25 E78.00 - Pure hypercholesterolemia, unspecified, I10 - Essential (primary) hypertension, K21.9 - Gastro-esophageal reflux disease without esophagitis
== END 2025-01-06 11:33 | disposition home or self-care (01) ==
LOC: HO.HMCC 09:26
PROVIDERS: PCP Internal Medicine; Visit Provider Internal Medicine
DX: I10 Essential (primary) hypertension (principal); K21.9 Gastro-esophageal reflux disease without esophagitis; E78.00 Pure hypercholesterolemia, unspecified

== ENCOUNTER → 2025-01-06 09:25 | Outpatient (BNVA) | payer MEDICARE, SELFPAY | PROVIDERS: PCP Internal Medicine; Visit Provider Internal Medicine | DX: I10 Essential (primary) hypertension (principal); K21.9 Gastro-esophageal reflux disease without esophagitis; E78.00 Pure hypercholesterolemia, unspecified | CPT/HCPCS: 96127; 99212 ==